=== PATIENT | female | born 1970 | race Caucasian/White ===

== ENCOUNTER 2016-11-11 09:58 | Emergency (ER) | payer OTHER ==
[~2016-11-11] VITALS: Ht 165.1 cm; Wt 68.2 kg
[2016-11-11 10:00] VITALS: BP 138/85; PULSE 76; RESP 16; O2SAT 98
--- NOTE | 2016-11-11 10:25 | ED.REPORT ---
HPI-Abd Pain F 40 and Over Date of Service Nov 11, 2016 ED Provider: Doc,Ed MD The patient is a 46year old female who presents to the emergency department complaining of urinary symptoms that began 2 days ago. She has experienced dysuria, increased urgency/frequency, nausea, vomiting, chills, and generalized weakness. She has history of stage III kidney failure and experiences UTIs often. She is not on dialysis. She denies fever, back pain or abdominal pain. Nursing Notes Stated Complaint: VOMITING Chief Complaint: Female Abdominal Pain Nursing Notes Reviewed: Yes Allergies: Coded Allergies: Penicillins (Verified Allergy, Mild, HIVES, 11/11/16) phenytoin (Verified Allergy, Mild, HIVES RASH, 11/11/16) Scheduled Cephalexin (Keflex) 250 Mg Capsule 250 MG PO BID Ondansetron ODT (Ondansetron ODT) 8 Mg Tab.rapdis 8 MG PO Q8H General Time Seen by MD: 10:24 Chief Complaint Dysuria Hx Obtained From: Patient Arrived By: Walk-in Sudden in Onset?: Yes Onset Occurred: 2 days ago Symptom Duration: Since onset Progression since Onset: Constant Quality: Painful Severity: Current: Mild Severity: Maximum: Mild Associated with: Reports: Chills, Dysuria, Nausea, Urinary frequency, Vomiting , Denies: Diarrhea, Fever Pertinent Negative: Pt denies other symptoms Recent Healthcare: No recent doctor visit, No recent hospitalization Similar Sx Previous: Yes Past Medical History Past Medical History Stage III kidney failure, not on dialysis Hx of UTIs Past Surgical History Cholecystectomy Family History Noncontributory Smoking History Never Smoker Social History Other Social History: Local resident Ambulatory Status Independent Review of Systems Constitutional: Reports: Chills, Weakness - generalized, Denies: Fever GI: Reports: Nausea, Vomiting, Denies: Abdominal pain, Diarrhea Female: Reports: Dysuria, Urinary frequency, Urinary urgency, Urination decreased, Denies: Flank pain Musculoskeletal: Denies: Back pain Complete sys rev & neg: except as marked. Physical Exam Vital Signs Vital Signs (First) Date Time Temp Pulse Resp B/P Pulse Ox O2 Delivery O2 Flow Rate FiO2 11/11/16 10:00 36.4 76 16 138/85 98 Initial VS: Reviewed, Vital signs normal Head / Eyes: Atraumatic, Normocephalic, PERRL ENT: Mucous membranes moist, Conjunctiva normal, No scleral icterus Neck: Supple, Non-tender, Full range of motion Lymphatic: No lymphadenopathy Extremities: Vascular intact, Neuro intact, No swelling, No tenderness Skin: Warm, Dry, No cyanosis Neurologic: Alert, Oriented, Nonfocal Psychiatric: Mood/affect normal, Behavior normal, Normal thought content General/Constitutional: Awake, Alert, Cooperative Respiratory / Chest: Atraumatic, Breath sounds NL, Breath sounds = bilat, No respiratory distress, No rales, No rhonchi, No wheezing, No stridor Cardiovascular: Heart rate NL, Regular rhythm, Heart sounds NL, Peripheral circulation NL Abdomen: Soft, No guarding, No rebound, BS normoactive, No distention, No hernia, No palpable mass, No pulsatile mass Tenderness/Guarding/Rebound: Positive: Tender suprapubic (mild) Back: No midline vertebral tend, No CVA tenderness Interpretation & Diagnostics Lab Results Interpretation Test 11/11/16 10:25 Urine Color Straw (YELLOW) Urine Appearance Slightly cloudy Urine pH 5.5 (5.0-8.0) Urine Specific [place] 1.025 (1.003-1.035) Urine Protein 300mg/dL (NEG,TRACE) Urine Glucose (UA) 100mg/dL (NEGATIVE) Urine Ketones Negativemg/dL (NEGATIVE) Urine Occult Blood Moderate (NEGATIVE) Urine Nitrite Negative (NEGATIVE) Urine Bilirubin Negative (NEGATIVE) Urine Urobilinogen Normalmg/dL (NORMAL) Urine Leukocyte Esterase Moderate (NEGATIVE) Urine RBC 0-2/hpf (0-2) Urine WBC >50/hpf (0-5) Urine Epithelial Cells Occasional/hpf (NONE-MOD) Urine Crystals None seen (NONE SEEN) Urine Bacteria Many/hpf (NONE-FEW) Urine Hyaline Casts None/lpf (NONE) Urine Granular Casts None seen (NONE SEEN) Urine Waxy Casts None seen (NONE SEEN) Urine Red Blood Cell Casts None seen (NONE SEEN) Urine White Blood Cell Casts None seen (NONE SEEN) Urine Mucus None seen (None Seen) Urine Trichomonas None seen (NONE SEEN) Urine Yeast None (NONE SEEN) Urinalysis Comment None Urine Culture Reflexed Indicated Re-Eval/Medical Decision Med Decision/Clinical Course The patient presents with symptoms of a UTI and some symptoms concerning that she is developing infection however she has not had any CVA tenderness. She says she has urinary tract infections but there are no records here. She was started on a course of Keflex given her history of stage IV renal disease. Source of Hx: Old records Re-Evaluation/Progress : Time of Eval: 11:00 Re-Evaluation/Progress Note: Discussed results, diagnosis, and plan for discharge. All questions were addressed. Counseled Regarding: Diagnosis, Lab results, Need for follow-up, When/why to return to ED Discharge & Departure Primary Impression: Urinary tract infection Urinary tract infection type: site unspecified Hematuria presence: without hematuria Qualified Code: N39.0 - Urinary tract infection, site not specified Disposition: Home Discharge Condition All VS Reviewed: Yes Condition: Stable Patient Instructions: Urinary Tract Infection in Women (ED) Additional Instructions: Thank you for entrusting us with your care today. Your labs are consistent with a urinary tract infection. I have written you a prescription for an antibiotic called Keflex. You will take this twice daily for 7 days. I have also given you a prescription for Zofran that you can take for nausea and vomiting. Make sure to drink plenty of fluids. Followup with you regular doctor next week for recheck. Return to the emergency department for any new or concerning symptoms. Referrals: OTHER,PHYSICIAN (PCP) (Family) Scribe Attestation Portions of this note were transcribed by Christine Valera. I, Dr. Elkins personally performed the history, physical exam and medical decision-making; I reviewed and confirmed the accuracy of the information in the transcribed note. Signed by: Ghada Lara, 11/11/2016 at 1120. Janessa Elkins MD Nov 11, 2016 10:24 Christine Valera Nov 11, 2016 10:30
[2016-11-11] MEDS ORDERED: Ondansetron 8 mg ODT Tablet ONE (10:32)
[2016-11-11] MEDS ORDERED: CEPH-511 PO (11:01)
[2016-11-11] MEDS ORDERED: ONDA8TAB10 PO (11:01)
[2016-11-11 11:22] LABS: COLOR,URINE STRAW (YELLOW)
[2016-11-11 11:23] LABS: APPEARANCE,URINE SLIGHTLY CLOUDY (CLEAR,HAZY); OCCULT BLOOD,URINE MODERATE (NEGATIVE); PH,URINE 5.5 (5.0-8.0); UROBILINOGEN,URINE NORMAL (NORMAL)
== END 2016-11-11 11:02 | disposition home or self-care (01) ==
LOC: SED 09:58
DX: N39.0 Urinary tract infection, site not specified (principal); B96.20 Unspecified Escherichia coli [E. coli] as the cause of diseases classified elsewhere; N18.3 Chronic kidney disease, stage 3 (moderate); Z87.440 Personal history of urinary (tract) infections; Z88.0 Allergy status to penicillin; Z88.8 Allergy status to other drugs, medicaments and biological substances

== ENCOUNTER 2016-11-21 18:59 | Inpatient (IN) | payer OTHER ==
[~2016-11-21] VITALS: Ht 165.1 cm; Wt 66.0 kg
[~2016-11-21 18:59] MED LIST: CEPH-511 PO; ONDA8TAB10 PO
[2016-11-21 19:01] VITALS: BP 176/92; PULSE 76; RESP 16; O2SAT 96
[2016-11-21] MEDS ORDERED: 0.9% Sodium Chloride 1,000 ML IV ONE (19:58)
[2016-11-21 20:22] LABS: BASOPHILS % (AUTO) 0.2 % (0-3)
[2016-11-21 20:29] LABS: EOSINOPHILS % (AUTO) 0 % (0-5); MONOCYTES % (AUTO) 0.8 % (4-12); Mean Corpuscular Hemoglobin 27.5 pg (27.0-35.0); Mean Corpuscular Volume 82.9 fL (81-100); NEUTROPHILS % (AUTO) 89.5 % (40-74); Platelet Count 97 bil/L (150-400)
--- NOTE | 2016-11-21 20:39 | ED.REPORT ---
HPI-Dizziness / Weakness Date of Service Nov 21, 2016 ED Provider: Solitario Louise PA-C Suzanna is a 46-year-old female with a history of stroke, diabetes, stage IV kidney disease and MS who presents with a chief complaint of low blood pressure. She reports a two-week history of variability in her blood pressure, she describes it being high and alternating the low when she stands up. She is measuring this at home. She associates the low blood pressure with a sensation of dizziness, presyncope, vertigo, nausea. She has not fallen. She has sensation of pressure in her left eye which he believes is a sinus infection, she has a sense of congestion in her years. recently treated for UTI. 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 She denies history of DVT/PE, recent trauma or surgery, hemoptysis, exogenous estrogen, unilateral leg swelling, malignancy. Nursing Notes Stated Complaint: LOW BLOOD PRESSURE Chief Complaint: Female Abdominal Pain Nursing Notes Reviewed: Yes Allergies: Coded Allergies: Penicillins (Verified Allergy, Mild, HIVES, 11/11/16) phenytoin (Verified Allergy, Mild, HIVES RASH, 11/11/16) Scheduled Cephalexin (Keflex) 250 Mg Capsule 250 MG PO BID Ondansetron ODT (Ondansetron ODT) 8 Mg Tab.rapdis 8 MG PO Q8H General Time Seen by MD: 19:40 Chief Complaint Other (low blood pressure) Risk Factors Risk Notes: Wells criteria for pulmonary embolism low risk group. PERC negative. Past Medical History Past Medical History Stage III kidney failure, not on dialysis Hx of UTIs Past Surgical History Cholecystectomy Family History Noncontributory Smoking History Never Smoker Social History Other Social History: Local resident Ambulatory Status Independent Review of Systems General: Denies fever, chills, malaise. HEENT: Admits congestion, headache. Respiratory: Denies dyspnea, cough, shortness of breath, wheezing. Cardiovascular: Denies chest pain, palpitations. Gastrointestinal: Denies vomiting, diarrhea, abdominal pain. Genitourinary: Denies frequency, urgency, dysuria, hematuria. Otherwise as noted in HPI. Physical Exam General: Well appearing, well developed, well nourished, no acute distress. Disheveled. Head: Atraumatic, normocephalic. No mastoid tenderness. Eyes: No scleral icterus or injection. No discharge. PERRL. Ears: Pinna and tragus nontender with manipulation. External auditory canal patent, atraumatic and without discharge. Tympanic membrane osborne, shiny and translucent without fluid, bulging, retraction or perforation. Hearing grossly intact. Nose: Symmetrical, nares patent without discharge. No frontal or maxillary sinus tenderness. Mouth/pharynx: normal dentition, mucus membranes moist. Tonsils 2+ and symmetrical, uvula midline. Pharynx noninjected, no cobblestoning or discharge. Voice clear. Neck: No tenderness or lymphadenopathy. Trachea midline. Respiratory: Regular rate and rhythm. Breath sounds present, clear to auscultation and equal bilaterally. No respiratory distress. No increased work of breathing, speaks in complete sentences. Cardiovascular: Regular rate and rhythm, without murmur, gallop or rub. No pedal edema. Orthostatic vital signs: Reclining 194/87, 95 bpm. Seated 179/92, 92 bpm. Standing 170/86 89 bpm Gastrointestinal: Abdomen flat and non-tender without guarding or rebound. Bowel sounds normoactive. Skin: Warm and dry. Neurological: Negative pronator drift Cranial nerves: Vision grossly intact, PERRL, EOMI. Facial motion symmetrical, sensation to light touch over forehead, maxilla and mandible present and equal B /L. Voice clear and fluent, no drooling/pooling of saliva, uvula rises midline. Psychological: Alert and oriented. Speech appropriate, linear and logical. Behavior appropriate. Initial Vital Signs Vital Signs (First) Date Time Temp Pulse Resp B/P Pulse Ox O2 Delivery O2 Flow Rate FiO2 11/21/16 19:01 36.3 76 16 176/92 96 Room Air Initial VS: Reviewed, Vital signs abnormal (elevated blood pressure) Interpretation & Diagnostics Lab Results Interpretation Result Diagram: 11/21/16201411/21/16 2015 Test 11/21/16 20:15 White Blood Count 16.5th/mm3 (3.8-10.1) Red Blood Count 4.33mil/mm3 (3.90-5.20) Hemoglobin 11.9g/dL (12.0-15.6) Hematocrit 35.9% (35.0-46.0) Mean Corpuscular Volume 82.9fL (81-100) Mean Corpuscular Hemoglobin 27.5pg (27.0-35.0) Mean Corpuscular Hemoglobin Concent 33.1% (32.0-37.0) Red Cell Distribution Width 13.0% (12.3-15.4) Platelet Count 97bil/L (150-400) Neutrophils (%) (Auto) 89.5% (40-74) Lymphocytes (%) (Auto) 9.0% (14-46) Monocytes (%) (Auto) 0.8% (4-12) Eosinophils (%) (Auto) 0% (0-5) Basophils (%) (Auto) 0.2% (0-3) Activated Partial Thromboplast Time 19.4sec (22.8-33.0) Sodium Level 135mEq/L (134-144) Potassium Level 4.5mEq/L (3.5-5.2) Chloride Level 94mEq/L (97-108) Carbon Dioxide Level 22mmol/L (18-29) Blood Urea Nitrogen 68mg/dL (6-24) Creatinine 3.68mg/dL (0.57-1.00) Estimat Glomerular Filtration Rate 19mL/min (>59) Glucose Level 342mg/dL (60-99) Calcium Level 11.9mg/dL (8.5-10.1) Total Bilirubin 0.3mg/dL (0.0-1.2) Aspartate Amino Transf (AST/SGOT) 19U/L (0-50) Alanine Aminotransferase (ALT/SGPT) 13U/L (0-32) Alkaline Phosphatase 81U/L (25-150) Troponin T 0.198ug/L (0.0-0.011) Total Protein 8.0g/dL (6.4-8.4) Albumin 4.5g/dL (3.4-5.0) Hold Dow Top Tube Received (Received) Re-Eval/Medical Decision Med Decision/Clinical Course Discussed this case with 46-year-old female with history of stroke, diabetes, stage IV kidney disease and less presents with chief complaint of low blood pressure which on further questioning sounds to be orthostatic hypotension which she has been measuring at home. She associates. Low blood pressure with lightheaded dizziness, as well as vertigo, nausea. Physical examination reveals little, I could not reproduce her orthostatic hypotension. She does endorse lightheadedness when she sits and then stands up for the examination. Blood pressure is high at roughly 190/90. CBC reveals leukocytosis with a left shift. CMP reveals a chlorine, elevated BUN and creatinine with a estimated GFR of 19. His 342 and calcium 11.9. Troponin at 0.198. Initially attempted to attribute this to kidney disease however there are no previous records to compare to. Discussed the case with Dr. Marte. He would like to perform an echocardiogram tomorrow. He asked that I put her on metoprolol tartrate 25 mg twice a day and IV heparin according to the cardiac protocol Discussed the case with the hospitalist who accepts admission. Consultation #1: Referral / Consult Name: Ervin Marte MD Consulted With: Cardiology Call Returned at: 21:51 Note: Will see the patient tomorrow and schedule an echo. Asked that we give her aspirin, IV heparin and metoprolol tartrate at 25 mg twice a day Consultation #2: Referral / Consult Name: Dianne Armando DO Consulted With: Hospitalist Call Returned at: 23:14 Still Operator Gin: Accepts admit Patient Discharge & Departure Impression: Primary Impression: NSTEMI (non-ST elevated myocardial infarction) Disposition: ADMITTED TO HOSPITAL Referrals: OTHER,PHYSICIAN (PCP) (Family) EDSupervising Provider for APC: Zhao Montana Seth PA-C Nov 21, 2016 20:39
[2016-11-21 20:58] LABS: TROPONIN T 0.198 ug/L (0.0-0.011)
[2016-11-21 21:23] VITALS: BP 177/74; PULSE 94; RESP 13; O2SAT 97
[2016-11-21] MEDS ORDERED: Heparin 5,000 Unit/mL Inj IVPUSH ONE (22:00)
[2016-11-21] MEDS ORDERED: Heparin 25K Unit/500mL 0.45 NS 25,000 UNIT in IV Premix 1 EACH IV SCH (22:00)
[2016-11-21] MEDS ORDERED: Ondansetron 2 mg/mL 2 mL Inj IVPUSH ONE (22:50)
--- NOTE | 2016-11-21 23:08 | NUR ---
PTT Lab called with PTT at 2305, value of 19.4. Pt not received to floor yet.
[2016-11-21 23:10] VITALS: BP 186/85; PULSE 96; RESP 12; O2SAT 100
[2016-11-21] MEDS ORDERED: Senna-Docusate 8.6-50 mg Tablet PO PRN (23:25)
[2016-11-21] MEDS ORDERED: Polyethylene Glycol (PEG) 17 Gm Powder PO PRN (23:25)
[2016-11-21] MEDS ORDERED: Alum-Mag Hydrox-Simeth 30 mL Suspension PO PRN (23:25)
[2016-11-21 23:43] VITALS: BP 207/115; PULSE 97; RESP 18; O2SAT 97
[2016-11-21 23:57] LABS: APPEARANCE,URINE CLEAR (CLEAR,HAZY); COLOR,URINE YELLOW (YELLOW); OCCULT BLOOD,URINE SMALL (NEGATIVE); UROBILINOGEN,URINE NORMAL (NORMAL)
[2016-11-22] VITALS (15 sets, daily range): BP systolic 136–221; BP diastolic 62–99; PULSE 63–97; RESP 14–22; O2SAT 95–98
[2016-11-22] MEDS: Sodium Chloride LOK Flush 10 mL Syringe IVFLUSH SCH ×4 (00:30→21:12)
--- NOTE | 2016-11-22 00:30 | NUR ---
admission patient admitted to room 3021. tele SR. heparin gtt infusing per cardiac protocol. denies chest pain. bp is elevated as documented. complains of head ache and left eye discomfort. rates 4. left eye is swollen. slight redness. no change to vision. PERRL. up to bsc. steady. denies dizzyness. reviewed fall precautions.bed alarm on.
[2016-11-22] MEDS ORDERED: METO50TA3 PO (00:39)
[2016-11-22] MEDS ORDERED: NIFE60TA62 PO (00:39)
[2016-11-22] MEDS ORDERED: ASPI81TA3 PO (00:39)
[2016-11-22] MEDS ORDERED: FURO40TA4 PO ×2 (00:39)
[2016-11-22] MEDS ORDERED: CARV6.252 PO (00:40)
[2016-11-22] MEDS ORDERED: LOSA100T29 PO (00:40)
[2016-11-22] MEDS ORDERED: INSU100C8 SUBQ (00:41)
[2016-11-22] MEDS ORDERED: INSU100V7 SUBQ (00:41)
[2016-11-22] MEDS ORDERED: LEVO125T6 PO (00:41)
[2016-11-22] MEDS ORDERED: LANS30CA PO (00:42)
[2016-11-22] MEDS ORDERED: METO10TA3 PO (00:43)
[2016-11-22] MEDS ORDERED: PROM25TA14 PO (00:43)
[2016-11-22] MEDS ORDERED: CARV12.52 PO (00:46)
[2016-11-22] MEDS ORDERED: LIP40 PO (00:47)
[2016-11-22] MEDS ORDERED: 0.9% Sodium Chloride 1,000 ML IV SCH (01:20)
--- NOTE | 2016-11-22 01:28 | NUR ---
bp notified Dr Cr of elevated bp. med rec complete. patient requests applesauce. plan to give. c/o headache. plan to give miguel a will monitor.
[2016-11-22] MEDS ORDERED: Glucose 40% Oral Gel 15 Gm Tube PO PRN (03:50)
[2016-11-22] MEDS ORDERED: Labetalol 5 mg/mL 4 mL Inj IVPUSH ONE ×2 (04:00→04:45)
[2016-11-22 04:03] LABS: BASOPHILS % (AUTO) 0.1 % (0-3); EOSINOPHILS % (AUTO) 0 % (0-5); MONOCYTES % (AUTO) 3.6 % (4-12); Mean Corpuscular Hemoglobin 27.5 pg (27.0-35.0); Mean Corpuscular Volume 83.3 fL (81-100); NEUTROPHILS % (AUTO) 83.5 % (40-74); Platelet Count 317 bil/L (150-400)
--- NOTE | 2016-11-22 04:03 | NUR ---
blood pressure blood pressure cont. to be elevated. Dr Armando called, ordered labetolol iv. plan to administer. patient headache has returned. rates 4. no distress. care continues. Addendum: 11/22/16 at 0500 by CINDY WHYTE RN follow up bp to labetolol bp 209/[address] Plan to given an additional Labetolol 10mg slow iv push. and cont to monitor bp.
--- NOTE | 2016-11-22 04:20 | PCM.HPMED ---
Subjective Date of Service Nov 22, 2016 Primary Provider: Admitting Physician: Dianne Armando DO Primary Care Physician: Other,Physician Attending Physician: Dianne Armando DO Admit Status: From the Emergency Department Chief Complaint: Weakness and labile blood pressures History of Present Illness: 46-year-old female patient with complex medical history including multiple sclerosis, chronic kidney disease stage IV, CVA, diabetes type II insulin- dependent and hypertension who presented to the ER due to labile blood pressures and generalized weakness. Patient reports that for the past few days when measuring her blood pressure she has noticed that it has been extremely labile, with close systolic blood pressure down to the 80s and highs in the 215 range. Patient reports that she has been feeling dizzy, extremely fatigued, nauseated. Patient denies any vomiting or diarrhea. Patient reports a left- sided sinus headache. She also reports nasal congestion, sore throat, chills, fever and myalgias. Patient states that she has also been experiencing dysuria , increased urinary frequency and urgency, but denies hematuria. Patient also expresses concern as this morning she noticed she had lost all vision in her left eye. Patient states that at baseline she only has peripheral vision in the left eye, but was concerned when she lost entire vision in that eye. Patient reports that this is slowly resolving and that she is been able to see in that eye currently. Patient reports that she has a history of CVA, and is concerned that the vision change is an indication of another possible CVA. Review of Systems: A comprehensive review of systems was conducted with the patient and found to be negative except as above in the History of Present Illness. Allergies Coded Allergies: Penicillins (Verified Allergy, Mild, HIVES, 11/11/16) phenytoin (Verified Allergy, Mild, HIVES RASH, 11/11/16) Home Medications Aspirin 81 mg Atorvastatin 40 mg Carvedilol 12.5 mg twice a day Furosemide 40 mg daily NovoLog 5 units 3 times a day Lantus 5 units subcutaneous Lansoprazole 30 mg Levothyroxine 125 MCG Losartan 100 mg daily Metoclopramide 10 mg 3 times a day when necessary Metoprolol tartrate 50 mg twice a day Nifedipine 60 mg twice a day Zofran 8 mg every 8 hours Promethazine 25 mg 3 times a day when necessary PMH CVA Multiple sclerosis Insulin-dependent diabetes mellitus type II Left eye peripheral blindness Hypertension Hyperlipidemia GERD Heart murmur Stage IV kidney disease-- no dialysis Surgical History Cholecystectomy 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 Social History Hx Alcohol Use: No Hx Substance Use: No Hx Tobacco Use: No Smoking Status: Never Smoker Living Arrangement: with Family Exam Vital Signs Vital Sign - Last Date Time Temp Pulse Resp B/P Pulse Ox O2 Delivery O2 Flow Rate FiO2 11/22/16 00:58 90 18 206/97 98 Room Air 11/21/16 23:43 36.8 Intake and Output 11/21/16 11/21/16 11/22/16 Cumulative From/Thru 15:00 23:00 07:00 11/21/16 19:01 - 11/22/16 00:48 Intake Total 1000 ml 1000 ml Balance 1000 ml 1000 ml Intake IV Total 1000 ml 1000 ml Exam General: No acute distress, fatigued ,appropriately interactive HEENT: Tenderness to palpation of maxillary and frontal sinuses .Normocephalic, atraumatic. External ears without defect. Pupils equal, round, and reactive to light and accommodation. Moist conjunctivae. Oropharynx with moist mucosa. Neck: Supple with full range of motion.No lymphadenopathy Cardiovascular: Regular rate and rhythm with systolic murmur. No rubs, or gallops appreciated Pulmonary: Nonproductive cough. Clear to auscultation bilaterally with no crackles, wheezes, or rhonchi. Normal respiratory effort with no use of accessory muscles. Abdomen: Bowel tones present. Soft, nontender, nondistended. Extremities: No clubbing, cyanosis, edema, appreciated. Skin: Normal temperature, turgor, and texture; no rash, ulcers, or subcutaneous nodules appreciated. Psychiatric: Flat affect. Alert and oriented to person, place, and time. Neuro: Normal muscle strength, tone, and bulk. Reflexes, coordination, and sensory function within normal limits Lab and Diagnostics Result Diagram: 11/21/16201411/21/162014 Microbiology Urine culture pending Viral PCR pending X-Rays, CTs and MRIs CT of the head pending Assessment & Plan Labile blood pressures in the setting of uncontrolled chronic hypertension, present on admission, ongoing -Patient has been hypertension entire hospitalization -Recommend orthostatic blood pressure in the AM -Patient given 25 mg metoprolol in the ER, an additional 25 mg upon arrival to the room -IV labetalol administered to patient to decrease blood pressure -ER physician spoke with cardiology who recommended dose of metoprolol, aspirin , heparin drip, echocardiogram in the a.m. -Once medication reconciliation was completed continue all home hypertensive medications -Continue to monitor blood pressures Report of temporary left eye blindness, present on admission, resolving -She reports that she has peripheral blindness in her left eye, and that earlier today she experienced complete blindness of her left eye -Reports that this has never occurred to her before and only occurred today. -Pt has a history of CVA, without ocular symptoms -CT of the head ordered -Recommend considering MR stroke protocol -If no acute findings on CT recommend patient follow-up with her neurologist for possible worsening of her MS -Consider neurology consult if patient not continue to improve Acute leukocytosis of unknown etiology, present on admission, ongoing -Patient reports myalgias, nasal congestion, chills, fever -Respiratory viral PCR ordered -Patient also reporting dysuria, increased frequency, increased urgency of urination -UA ordered with urine culture pending -Continue to monitor with a.m. labs -No antibiotics initiated at this time Chronic kidney disease stage IV not on dialysis, present on admission, ongoing -Patient has BUN of 68, creatinine 3.68 -No previous records available for comparison, however patient reports her creatinine is often greater than 3 -Gentle hydration with IV normal saline -Consider nephrology consultation in the a.m. -Continue to monitor with a.m. labs Elevated troponin of unknown etiology, present on admission, ongoing -Patient's elevated troponins likely secondary to her chronic kidney disease -No previous records available for comparison, we will trend the troponins -If patient begins experiencing chest pain, EKG when necessary -Lipid panel pending Acute hypercalcemic, present on admission, ongoing -Calcium level at 11.9, no previous records for comparison -Gentle hydration -Continue to monitor with a.m. labs, if not improving consider treatment with calcitonin History of multiple sclerosis, presumed stable -Reports she is monitored by Dr. Miller of Neurology( [facility]) -Reports her MS is stable and that she is not currently on any medications Diabetes mellitus type II insulin-dependent, present on admission, presumed stable -A1c pending -Low-dose correctional insulin ordered -Continue to monitor with regular blood glucose checks PCP Dr. Kaylie Kaplan CODE STATUS: DNR/DNI Patient is admitted under inpatient status with expected length of stay greater than 2 midnights due to severity of presenting symptoms, risk of adverse event, and complexity of treatment plan. VTE Mechanical Devices: Intermittant Pneumatic CD Resuscitation Status: DNR/DNI:Do Not Resuscitate/Intubate Attending Statement The patient was seen and examined together with (name) on 11/22/2016 and I agree with the history, exam and plan as outlined in the note above. Clair Cr DO Nov 22, 2016 01:49 Dianne Armando DO Nov 22, 2016 05:47
[2016-11-22] MEDS: Ondansetron 2 mg/mL 2 mL Inj IVPUSH PRN ×2 (04:26→08:42)
[2016-11-22] MEDS: Heparin 5,000 Unit/mL Inj IVPUSH PRN ×2 (04:33→17:18)
--- NOTE | 2016-11-22 05:22 | NUR ---
nausea patient reports "i have chronic nausea" medicated with zofran 8mg slow iv push effective.
--- NOTE | 2016-11-22 06:36 | NUR ---
blood pressure medications/ emesis patient's blood pressure cont to be high as documented notified Dr Almeida. ordered morning antihypertensive medications. given. as documented approximately 20 min later patient had large emesis of the food she had eaten at home yesterday. pills seen floating in the emesis. patient confirms that she has gastroparesis and cyclic nausea and vomiting. notified dr almeida of above. plan to given antihypertensive medications later in the morning (they will be rescheduled.)
[2016-11-22] MEDS ORDERED: MeTOProlol 1 mg/mL 5 mL Inj IVPUSH ONE (08:15)
[2016-11-22] MEDS: Insulin LISPRO 300 Unit/3 mL Inj SUBQ SCH ×4 (08:55→21:12)
--- NOTE | 2016-11-22 11:21 | DRSVH ---
[facility] [address] [place] [address] Echocardiogram Report Name: RUTHANN ROMEO Kristopher e: 11/22/2016 Height: 65 in Hospital Exam Location: [facility] Weight: 140 lb Gender: Female BSA: 1.7 m2 : 1970 Age: 46 yrs BP: 214/95 mmHg Reason For Study: MURMUR, HYPERTENSION Ordering Physician: Performed By: Lilia Bowles [facility] Interpretation Summary 1. Normal left ventricular size with mildly increased wall thickness and normal systolic function with an estimated EF of 65 to 70%. Mildly elevated outflow tract velocities 2. Normal right ventricular size and systolic function 3. No evidence for valvular pathology Procedure: A two-dimensional transthoracic echocardiogram with color flow and Doppler was performed. There is no prior echocardiogram noted for this patient. The study quality was technically good. The patient was in normal sinus rhythm during the exam. Left Ventricle: Left ventricular wall thickness is mildly increased. The left ventricle is normal in size. Mildly elevated outflow tract velocities. A false chord is noted (normal variant). The ejection fraction is estimated to be 65-70%. No obvious wall motion abnormalities. The E/A ratio is reversed with an elevated E/E', suggesting impaired early relaxation of the left ventricle with possible increased filling pressures. Right Ventricle: The right ventricle is normal in size and function. Atria: The left atrium is mildly dilated. Right atrial size is normal. No color doppler evidence for an ASD. Mitral Valve: The mitral valve is normal in structure and function. There is mild mitral regurgitation. Aortic Valve: The aortic valve is trileaflet. The aortic valve opens well. No aortic regurgitation is present. Tricuspid Valve: The tricuspid valve leaflets are thin and pliable. There is a trace or physiologic amount of tricuspid regurgitation. Pulmonary artery pressures cannot be estimated because of the lack of a measurable TR jet velocity. Pulmonic Valve: The pulmonic valve is not well seen, but is grossly normal. There is no pulmonic valvular regurgitation. Great Vessels: The aortic root is normal size. The dimensions of the ascending aorta are normal. The IVC is of normal diameter and collapses greater than 50% with a sniff. This suggests a low right atrial pressure of 3 mm Hg. Pericardium/ Pleura There is no pericardial effusion. MMode/2D Measurements & Calculations LVIDd: 4.5 cm LA dimension: 4.1 cm RA long axis LVOT diam LVIDs: 2.7 cm FS: 40.1 % LA A2 area: 18.2 cm RA area AoV Opening EPSS: 0.59 cm LA A4 area: 20.6 cm IVSd: 1.1 cm LA length (vol): 5.1 cm: 14.6 cm Ao root diam LVPWd: 1.4 cm LA vol: 62.1 ml RA vol LA vol index : 35.8 ml Aortic Jxn RA : 21.1 mm2 asc Aorta IVC diam: 1.4 cm Diam: 3.3 cm LV curry. diameter/BSA LV sys. diameter/BSA RVD1 (basal) (cm/m^2): 2.7 (cm/m^2): 1.6 Doppler Measurements & Calculations Ao V2 max MV E max augustin MV E/A: 0.83 PA V2 max : 178.7 cm/sec : 93.3 cm/sec Med Peak E' Augustin : 110.3 cm/sec Ao max PG MV A max augustin PA mean PG : 12.8 mmHg : 112.4 cm/sec E/E' med: 17.4 Ao mean PG MV P1/2t: 42.0 msec Lat Peak E' Augustin PA Accel Time : 0.16 sec LVOT Max Augustin E/E' lat: 12.8 : 135.1 cm/sec E/e' average: 15.1 Pulm A Revs Dur BALTA(I,D): 2.2 cm sev ratio MV A dur: 0.10 sec MV dec time MV P1/2t max augustin Ao V2 mean LV V1 max PG : 0.14 sec : 118.0 cm/sec MVA(P1/2t): 5.2 cm2 Ao V2 VTI: 34.0 cm LV V1 VTI BALTA(V,D): 1.9 cm2 : 28.7 cm PA V2 mean BALTA indexed to BSA Pulm A Revs Dur - MV A : 76.8 cm/sec (cm^2/m^2): 1.3 Dur: -0.01 msec Reading Physician:11:20 AM
[2016-11-22] MEDS ORDERED: NIFEdipine 30 mg ER24 Tablet PO SCH (11:35)
--- NOTE | 2016-11-22 11:42 | DRSVH ---
PROCEDURE: CT BRAIN WITHOUT CONTRAST ([id number]) INDICATIONS: reported sudden loss of vision left eye TECHNIQUE: Noncontrast 4.5 mm thick angled axial sections acquired from the foramen magnum to the vertex, with c oronal reformats. COMPARISON: None. FINDINGS: Image quality: Excellent. CSF spaces: Basal cisterns are patent. No extra-axial fluid collections. Ventricles are normal in size and shape. Brain: No midline shift. No intracranial masses or hemorrhage. De Oliveira-white matter interface is norm al. Skull and face: Calvarium and visualized facial bones are intact, without suspicious lesions. Sinuses: Visualized sinuses and mastoids are clear. IMPRESSION: No acute intracranial abnormality. no explanation for left eye visual loss. Dictated by: Mariella Brunson M.D. on 11/22/2016 at 11:35 Approved by: Mariella Brunson M.D. on 11/22/2016 at 11:35
[2016-11-22] MEDS ORDERED: NS IV SCH ×2 (11:45)
[2016-11-22] MEDS ORDERED: LABETALOL IV SCH ×2 (11:45)
[2016-11-22] MEDS: 0.9% Sodium Chloride 1,000 ML IV SCH ×2 (12:36→21:38)
--- NOTE | 2016-11-22 12:49 | NUR ---
Hypertension Patient continues to be hypertensive even with PRN meds given. MD notified. C/o EWING, Morphine given with good relief. No emesis thus far in shift yet continued to have c/o nausea. Zofran given with good relief. Febrile. Denies chills or SOB. Just continues to state "I feel like crap". Denies chest pain or heart palpitations. Report given to Nik Krueger RN. Will transfer to 2nd floor to start of hypertensive gtt.
--- NOTE | 2016-11-22 13:11 | DRSVH ---
PROCEDURE: X-RAY CHEST ONE VIEW, PORTABLE ([id number]) INDICATIONS: SHORTNESS OF BREATH TECHNIQUE: One view of the chest was acquired. COMPARISON: None. FINDINGS: Surgical changes and devices: None. Lungs and pleura: No pleural effusions or pneumothorax. Lungs are clear. Mediastinum: Mediastinal contours appear normal. Heart size is normal. Bones and chest wall: No suspicious bony lesions. Overlying soft tissues appear unremarkable. IMPRESSION: No acute process. Dictated by: Mariella Brunson M.D. on 11/22/2016 at 13:05 Approved by: Mariella Brunson M.D. on 11/22/2016 at 13:05
--- NOTE | 2016-11-22 17:11 | PCM.PNMED ---
Subjective Date of Service Nov 22, 2016 Subjective This is a 46-year-old female patient with complex medical history including multiple sclerosis, chronic kidney disease stage IV, CVA, diabetes type II insulin-dependent and hypertension who presented to the ER due to labile blood pressures and generalized weakness. Patient has been admitted for labile blood pressure and acute leukocytosis of unknown etiology. Hospital day #2. Patient c/o headache, morphine given with good relief. One episode of emesis after morning pills were given. Patient denies chills or shortness of breath. Just continues to state "I feel like crap". Denies chest pain or heart palpitations. Patient continued to be hypertensive, highest recorded BP 207/ 115 despite multiple PRN meds. Patient was transferred to 2nd floor to start of hypertensive gtt. Exam Vital Signs Vital Sign - Last Date Time Temp Pulse Resp B/P Pulse Ox O2 Delivery O2 Flow Rate FiO2 11/22/16 15:55 37.1 76 16 156/62 96 Room Air Intake and Output 11/21/16 11/21/16 11/22/16 Cumulative From/Thru 15:00 23:00 07:00 11/21/16 19:01 - 11/22/16 05:52 Intake Total 1000 ml 830 ml 1830 ml Output Total 500 ml 500 ml Balance 1000 ml 330 ml 1330 ml Intake Oral 400 ml 400 ml IV Total 1000 ml 430 ml 1430 ml Output Urine Total 500 ml 500 ml # Bowel Movements 0 0 Exam General: Somnolent, ill appearing, fatigued female HEENT: Tenderness to palpation of maxillary and frontal sinuses .Normocephalic, atraumatic. Neck: Supple, no lymphadenopathy Cardiovascular: Regular rate and rhythm with systolic murmur. No rubs, or gallops appreciated Pulmonary: Nonproductive cough. Clear to auscultation bilaterally with no crackles, wheezes, or rhonchi. Reduced respiratory effort with no use of accessory muscles. Abdomen: Bowel tones present. Soft, nontender, nondistended. Extremities: No clubbing, cyanosis, edema, appreciated. Skin: Normal temperature, turgor, and texture; no rash, ulcers, or subcutaneous nodules appreciated. Lab and Diagnostics Result Diagram: 11/22/16 0955 11/22/16 0355 Microbiology Urine culture negative Viral PCR negative Blood culture pending X-Rays, CTs and MRIs PROCEDURE: X-RAY CHEST ONE VIEW, PORTABLE ([id number]) FINDINGS: Surgical changes and devices: None. Lungs and pleura: No pleural effusions or pneumothorax. Lungs are clear. Mediastinum: Mediastinal contours appear normal. Heart size is normal. Bones and chest wall: No suspicious bony lesions. Overlying soft tissues appear unremarkable. IMPRESSION: No acute process. Dictated by: Mariella Brunson M.D. on 11/22/2016 at 13:05 Approved by: Mariella Brunson M.D. on 11/22/2016 at 13:05 PROCEDURE: CT BRAIN WITHOUT CONTRAST ([id number]) IMPRESSION: No acute intracranial abnormality. no explanation for left eye visual loss. Dictated by: Mariella Brunson M.D. on 11/22/2016 at 11:35 Approved by: Mariella Brunson M.D. on 11/22/2016 at 11:35 Assessment & Plan Labile blood pressures in the setting of uncontrolled chronic hypertension, present on admission, ongoing -Patient has been hypertension entire hospitalization -Recommend orthostatic blood pressure in the AM -Patient given 25 mg metoprolol in the ER, an additional 25 mg upon arrival to the room -IV labetalol administered to patient to decrease blood pressure -ER physician spoke with cardiology who recommended dose of metoprolol, aspirin , heparin drip, echocardiogram in the a.m. -Once medication reconciliation was completed continue all home hypertensive medications -Continue to monitor blood pressures: patient remained hypertensive despite multiple attempts to reduce it with IV meds, Patient has been transferred to ICU to start hypertensive gtt. 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 -Pt has a history of CVA, without ocular symptoms -CT of the head revealed no acute intracranial abnormality and no explanation for left eye visual loss. -Recommend considering MR stroke protocol -Follow-up with her neurologist for possible worsening of her MS -Consider neurology consult if patient not continue to improve Acute leukocytosis of unknown etiology, present on admission, ongoing -Patient reports myalgias, nasal congestion, chills, fever -Respiratory viral PCR negative -Patient also reporting dysuria, increased frequency, increased urgency of urination -UA ordered with urine culture pending -Continue to monitor with a.m. labs -No antibiotics initiated at this time Chronic kidney disease stage IV not on dialysis, present on admission, ongoing -Patient has BUN of 68, creatinine 3.68 -No previous records available for comparison, however patient reports her creatinine is often greater than 3 -Gentle hydration with IV normal saline -Consider nephrology consultation in the a.m. -Continue to monitor with a.m. labs Elevated troponin of unknown etiology, present on admission, ongoing -Patient's elevated troponins likely secondary to her chronic kidney disease -No previous records available for comparison, we will trend the troponins -If patient begins experiencing chest pain, EKG when necessary -Lipid panel pending Acute hypercalcemic, present on admission, ongoing -Calcium level at 11.9, no previous records for comparison -Gentle hydration -Continue to monitor with a.m. labs, if not improving consider treatment with calcitonin History of multiple sclerosis, presumed stable -Reports she is monitored by Dr. Miller of Neurology( [facility]) -Reports her MS is stable and that she is not currently on any medications Diabetes mellitus type II insulin-dependent, present on admission, presumed stable -A1c pending -Low-dose correctional insulin ordered -Continue to monitor with regular blood glucose checks PCP Dr. Kaylie Kaplan CODE STATUS: DNR/DNI Patient is admitted under inpatient status with expected length of stay greater than 2 midnights due to severity of presenting symptoms, risk of adverse event, and complexity of treatment plan. VTE Mechanical Devices: Intermittant Pneumatic CD Resuscitation Status: DNR/DNI:Do Not Resuscitate/Intubate Time spent 35minutes Attending Statement The patient was seen and examined together with Dr. Cooney on 11/22/16 and I have added additional information to the note above. Keyana Cooney DO Nov 22, 2016 17:11 Marycruz Willams DO Dec 04, 2016 17:39
--- NOTE | 2016-11-22 18:45 | NUR ---
HTN Cardiac: Pt denies chest pain. Tele: SR 60s-70s. At arrival to [facility] from [facility] at 13:15, pt's BP was 154/65, BP continued to trend down to 139/68 at 14:15 and then back up to a range of 155-165/65-71. If SBP > 200 or DBP > 100, give labetelol IV twice, if no effect, start Esmolol gtt per Dr Willams. Resp: Pt denies SOB, SPO2 mid 95% on RA. GI/: Pt denies n/v this afternoon, reports she is hungry, discussed with Dr Willams and will stop NPO order. Neuro: alert and oriented x3, NUNES, flat affect and very tired.
[2016-11-22] MEDS: NIFEdipine 30 mg ER24 Tablet PO SCH (21:11)
[2016-11-23] VITALS (8 sets, daily range): BP systolic 144–161; BP diastolic 69–77; PULSE 64–70; RESP 14–18; O2SAT 96–98
--- NOTE | 2016-11-23 05:37 | NUR ---
Blood Pressure Pt's BP throughout shift approx. 140s-160s SBP; HS antihypertensives given, no additional BP control needed this shift. Pt reports dizziness on exertion. MP30 in place. Pt resting throughout shift. Denies dyspnea or pain.
[2016-11-23] MEDS: 0.9% Sodium Chloride 1,000 ML IV SCH ×2 (06:29→18:09)
[2016-11-23] MEDS: Insulin LISPRO 300 Unit/3 mL Inj SUBQ SCH ×4 (08:00→20:06)
[2016-11-23] MEDS: Sodium Chloride LOK Flush 10 mL Syringe IVFLUSH SCH ×2 (08:30→16:30)
[2016-11-23] MEDS: NIFEdipine 30 mg ER24 Tablet PO SCH ×2 (09:52→20:54)
--- NOTE | 2016-11-23 11:24 | PCM.PNMED ---
Subjective Date of Service Nov 23, 2016 Subjective Patient feels better today. Less weak. Her blood pressures are a little less labile. She denies any chest pain. No dyspnea. She denies any nausea or vomiting. No diarrhea. Vision is back to baseline. She has central vision and no peripheral vision chronically in both eyes. She has had multiple episodes of laser surgery to both eyes. Exam Vital Signs Vital Sign - Last Date Time Temp Pulse Resp B/P Pulse Ox O2 Delivery O2 Flow Rate FiO2 11/23/16 09:53 69 11/23/16 08:25 36.9 16 148/69 98 Room Air Intake and Output 11/22/16 11/22/16 11/23/16 Cumulative From/Thru 15:00 23:00 07:00 11/21/16 19:01 - 11/23/16 06:01 Intake Total 1290 ml 1568 ml 4688 ml Output Total 300 ml 0 ml 700 ml 1500 ml Balance -300 ml 1290 ml 868 ml 3188 ml Intake Oral 0 ml 200 ml 600 ml IV Total 1290 ml 1368 ml 4088 ml Output Urine Total 300 ml 0 ml 700 ml 1500 ml # Bowel Movements 0 0 Exam Alert oriented 3. No distress. Fluent speech. Anicteric sclerae Normal visual testing with digits in the left eye. No facial droop. Lungs are clear with normal effort. Heart is regular with 2/6 systolic murmur Abdomen is soft nontender. Extremities are free of edema good pedal pulses. IVs and Medications Medications Reviewed: Medications were reviewed in detail Lab and Diagnostics Result Diagram: 11/23/16 0350 11/22/16 0355 Microbiology Urine culture negative Viral PCR negative Blood culture pending X-Rays, CTs and MRIs PROCEDURE: X-RAY CHEST ONE VIEW, PORTABLE ([id number]) FINDINGS: Surgical changes and devices: None. Lungs and pleura: No pleural effusions or pneumothorax. Lungs are clear. Mediastinum: Mediastinal contours appear normal. Heart size is normal. Bones and chest wall: No suspicious bony lesions. Overlying soft tissues appear unremarkable. IMPRESSION: No acute process. Dictated by: Mariella Brunson M.D. on 11/22/2016 at 13:05 Approved by: Mariella Brunson M.D. on 11/22/2016 at 13:05 PROCEDURE: CT BRAIN WITHOUT CONTRAST ([id number]) IMPRESSION: No acute intracranial abnormality. no explanation for left eye visual loss. Dictated by: Mariella Brunson M.D. on 11/22/2016 at 11:35 Approved by: Mariella Brunson M.D. on 11/22/2016 at 11:35 Assessment & Plan 1. Hypertensive urgency. POA. This is improving. We will stick with the current medical regimen without change today is her pressures appear to be improving. 2. Elevated troponin and patient with chronic kidney disease stage IV. POA. Continue heparin and other cardioprotective medications. We will discuss with cardiology. We will trend troponins. 3. Chronic kidney disease stage IV. POA. Stable. 4. Hypercalcemia, POA. He improving with gentle hydration. 5. Diabetes mellitus 2, uncontrolled. POA. Her control is now improving with hydration and correction lispro. 6. MS. POA. Stable 7. Recent report of decreased visual acuity in the left eye prior to admit. Not POA. She does have a history of glaucoma as well as diabetic retinopathy. Gen. field testing is normal at this time. We will follow clinically. Pain Evaluation: Adequate Pain Control VTE Mechanical Devices: Intermittant Pneumatic CD Resuscitation Status: DNR/DNI:Do Not Resuscitate/Intubate Time spent 30 minute Froylan Underwood MD Nov 23, 2016 11:23
--- NOTE | 2016-11-23 14:02 | CONS ---
[address] [address] CONSULTATION REPORT PATIENT: RUTHANN ROMEO : 1970 MR#: [id number] ADMIT: 11/21/2016 JOB ID: [id number] DATE OF SERVICE: 11/23/2016 CHIEF COMPLAINT: I was asked by the hospitalist team to consult on this patient given labile blood pressures and elevated troponin The patient is 46-year-old woman with past medical history significant for multiple sclerosis, history of stroke last year with decreased vision in her left eye. She also has a history of multiple sclerosis, chronic kidney disease, insulin-dependent diabetes and hypertension. She came to the ER because of generalized weakness. She tells me that she is taking her blood pressure medications regularly but has wide swings in blood pressure, with her systolic sometimes dropping as low as 70. Upon arrival to the ED, she was actually hypertensive and has been hypertensive for hospital stay until today where her blood pressures have normalized. She has multiple doctors who follow her. She has a primary care doctor in [facility] in [place]. She has a call center manager in [place] who has done stress test on her apparently and there has been no concern about her coronaries. She has a history of renal disease and is followed by a doctor at the [facility] as well. She again reports problems with her blood pressures which has been an ongoing issue. She tells me that she has been advised against having any further coronary assessment of course because of her renal function. The patient says she never had chest pressure, chest tightness, increased shortness of breath, orthopnea, PND, lower extremity edema, palpitations, or syncope. She said she has been feeling somewhat dizzy, fatigued, and somewhat nauseous. Today, she says she is feeling much better. She again denies any chest pain, chest pressure, increased shortness of breath. She is lying flat in bed. Her blood pressures have improved. PAST MEDICAL HISTORY/PROBLEM LIST: 1. History of multiple sclerosis. 2. History of stroke last year with vision issues associated with this affecting her left eye. 3. Chronic kidney disease. 4. Hypertension with issues with labile hypertension. 5. History of heart murmur. 6. History of GERD and hyperlipidemia. MEDICATIONS: At home included: 1. Aspirin 81 mg a day. 2. Atorvastatin 40 daily. 3. Carvedilol 12.5 b.i.d. 4. Furosemide 40 daily. (This was prescribed for lower extremity edema by her kidney doctor.) 5. NovoLog insulin. 6. Lantus insulin. 7. Lansoprazole 30 mg a day. 8. Levothyroxine 125 mcg daily. 9. Losartan 100 mg daily. 10. Metoprolol titrate 50 mg twice a day. 11. Nifedipine 60 mg twice a day. 12. Zofran. 13. Promethazine. ALLERGIES: 1. PENICILLINS. 2. PHENYTOIN. SOCIAL HISTORY: Never smoked. No alcohol use. FAMILY HISTORY: No early coronary disease. REVIEW OF SYSTEMS: No fevers or chills. Neuro: History of stroke with vision issues affecting her left side, somewhat worse at the time of admission. Heme: No easy bruising or bleeding. Renal: Has chronic kidney disease. Is followed by a kidney specialist. GI: No problems with ulcers or blood in his stool. Had some nausea. This has resolved. Endocrine: Treated for diabetes mellitus. Cardiac: As per HPI. No chest pain. No chest pressure. Has a call center manager. ENT: No difficulty swallowing. No sore throat. Ophtho: Acute vision changes with some worsening of left visual issues. Psych: No acute issues. Derm: No acute rashes, skin breakdown. Psych: No acute issues. All other review of systems on a 12 point review of systems are negative. PHYSICAL EXAMINATION: Blood pressure today is 148/69, heart rate 64, and sats are 98% on room air. Yesterday her blood pressures were in the 200 systolic. General: In no acute distress. Speaking in full sentences without apparent shortness of breath. Head and neck exam: Normocephalic, atraumatic. She is closing her left eye. Eyes: She has some possible edema affecting her eyelids. Neck: I do not appreciate obvious JV distention. Vascular: I do not appreciate bruits. Heart exam: Regular rate and rhythm with systolic murmur with does not increase significantly post Valsalva. Lungs sound clear to auscultation. Back: No CVA tenderness to palpation. Abdomen soft, nontender. Extremities: Warm. I do not appreciate a significant edema. 1 to 2+ DP pulses appreciated. Derm: without breakdown appreciated. Neuro: Is alert and oriented x3. Gait is not tested. Psych: Appropriate mood and affect. ENT: Oropharynx without erythema. Mucous membranes moist. Ophtho: She reports decreased vision in the left eye. CURRENT MEDICATIONS: Include: 1. Promethazine. 2. Nifedipine 60 b.i.d. 3. Carvedilol 12.5 b.i.d. 4. Atorvastatin 40 q.h.s. 5. Losartan 100 mg daily. 6. Heparin drip. 7. She was written for esmolol but this has been discontinued and metoprolol tartrate was also written in addition to Coreg but this has also been discontinued. LABORATORIES: Today show sodium 135, potassium 4.3, chloride and bicarb 96 and 26, respectively. BUN and creatinine 62 and 3.45. LDL cholesterol 87, HDL 44. Her troponins have been in the range of 0.2 showing some increase yesterday to 0.245 to 0.283. Calcium is elevated. Glucoses are also quite elevated. Hematology shows yesterday a white count 6.6, H and H 11 and 33, platelets 317,000. H and H has decreased somewhat to 8.8 and 27.2. IMAGING: Brain CT without contrast, no acute abnormalities. Chest x-ray: No acute processes. EKG shows sinus rhythm with nonspecific ST changes. IMPRESSION: The patient has a very complicated history. She presented with problems with labile blood pressures and then presenting with significant hypertension. She felt dizzy and fatigued. She came in and had an elevated blood pressure as well as an elevated troponin without associated significant EKG changes. He has no chest pain. No chest pressure. She has renal insufficiency. She tells me that she has had stress testing before. There has been no concern about her heart by her call center manager. There has been concern about her kidneys of course and she is not a dialysis patient at this time. PLANS AND RECOMMENDATION: I did discuss the ways to assess her further which would be including a stress test and/or cardiac catheterization. However, she has no chest pain, no chest pressure. She has normal LV systolic function without obvious wall motion abnormalities and would not wish to have cardiac catheterization because it would worsen her kidney function. She is also expressing desire to not have stress testing as well. I think we need to have further discussion with this patient in terms of what she would like us to do, but it seems she is leaning towards conservative management. In light of the fact that she does not seem to have any wall motion abnormalities or any acute symptoms that would warrant cardiac catheterization, I think for now we will treat her conservatively. Will keep her on the heparin. We can add Plavix if that is reasonable. We might be able to get her old records from her call center manager as well. Addendum: I have reviewed all the data on this patient and she denies any chest pain, chest pressure. She has elevated troponins which have been fairly stable. The elevated troponins could be due to the fact that she has some LVH, periods of relative hypotension or hypertension. However, she has never had chest pain or chest pressure. She says she has a call center manager who takes good care of her. I discussed our options which include medical management only, adding Plavix to her medications along with statin and beta benita. Option two was to do stress testing for risk stratification to see if it would be worth the risk to perform cardiac catheterization. She does not want to have stress testing and she does not want to have cardiac catheterization given her kidney function. Therefore, she agrees to medical management. So, we will treat her with statin, aspirin, Plavix and Coreg that she is already on. We can get her up walking around and make sure she does not have any chest discomfort or dyspnea or arrhythmias on telemetry. Addenda added by BRANDON 11/24/16 at 8:14am I spent 50 minutes speaking with the patient, reviewing her information, examining the patient and discussing her case with the hospitalist DAMARIS
--- NOTE | 2016-11-23 14:24 | NUR ---
Social Work Note: Screen Note Data & Assessment: EMR reviewed. Suzanna Powell is a 46 year old female admitted on 11/21/16 for N-Stemi. Pt has [employer] for insurance coverage. Pt lives with her father and is independent at baseline with a cane. Patient reports that she does not have a DPOA and accepted that information given by the SW. No discharge needs identified at this time. SW to continue to follow if any needs arise. Plan: Anticipated discharge home via POV when medically ready. No discharge needs identified at this time. SW to continue to follow if any needs arise. Sunitha [place]ellin, MARK, ACM
[2016-11-23 19:04] LABS: Mean Corpuscular Hemoglobin 26.8 pg (27.0-35.0); Mean Corpuscular Volume 85.1 fL (81-100)
--- NOTE | 2016-11-23 19:29 | NUR ---
Activity/Insulin mgmt. Pt was up in room and ambulating more than yesterday. Reports some lightheadedness, but is steady on feet. blood sugars are lower today requiring only minimal insulin doses. Cardiac:Pt denies CP, tele SR 60s Resp: Pt denies SOB, SPO2 96% on RA GI/: Pt denies n/v/d, discussed bowel meds with pt, pt declines at this time as she was NPO yesterday. She uses dulcolax at home. Neuro: Pt AOx3, able to NUNES, Pt reports "I'm always a little dizzy", it is not worse than her normal, she also reports neuropathy in legs at baseline.
[2016-11-24 00:02] VITALS: BP 149/74; PULSE 69; RESP 16; O2SAT 97
[2016-11-24] MEDS: Sodium Chloride LOK Flush 10 mL Syringe IVFLUSH SCH ×2 (00:30→08:48)
--- NOTE | 2016-11-24 02:29 | NUR ---
BP Pt's BP readings below 150/80. Pt has no complaints. No s/sx or complaints.
[2016-11-24 03:28] VITALS: BP 141/85; PULSE 74; RESP 20; O2SAT 97
[2016-11-24] MEDS: Insulin LISPRO 300 Unit/3 mL Inj SUBQ SCH ×2 (08:00→12:00)
[2016-11-24 08:38] LABS: BASOPHILS % (AUTO) 0.4 % (0-3); EOSINOPHILS % (AUTO) 3.2 % (0-5); MONOCYTES % (AUTO) 8.8 % (4-12); Mean Corpuscular Volume 86.5 fL (81-100); NEUTROPHILS % (AUTO) 43.3 % (40-74); Platelet Count 226 bil/L (150-400)
[2016-11-24 08:40] VITALS: BP 166/75; PULSE 73; RESP 16; O2SAT 97
[2016-11-24] MEDS: NIFEdipine 30 mg ER24 Tablet PO SCH (08:48)
[2016-11-24 09:24] VITALS: PULSE 70
--- NOTE | 2016-11-24 11:15 | PCM.DIMED ---
Discharge Instructions Date of Service Nov 24, 2016 Dates of Hospitalization Nov 21, 2016 at 22:00 Discharge Diagnosis Discharge Diagnosis 1. Hypertensive urgency. 2. Elevated troponin and patient with chronic kidney disease stage IV. Possible demand ischemia. 3. Chronic kidney disease stage IV. POA. Stable. 4. Hypercalcemia, resolved. 5. Diabetes mellitus 2, uncontrolled. Improved. 6. Multiple sclerosis. Diet Heart Healthy, Diabetic, Renal Diet Activity Limited until seen by PCP Call your provider Fever or Chills, Shortness of breath, Chest pain Patient Instructions Your PCP as scheduled next week. I would urge you to see your kidney doctor and talked about dialysis planning as well as the management of year ongoing erratic high blood pressure. Follow-up with PCP in: 1 week Froylan Underwood MD Nov 24, 2016 11:15
--- NOTE | 2016-11-24 11:33 | NUR ---
Social Work Note: Discharge Data& Assessment: Per pt is medically ready for discharge home via POV. Suzanna Powell is a 46 year old female admitted on 11/21/2016 for N-Stemi. Per pt is medically improved and ready for discharge. Pt is independent in her room and independent at baseline. SW met with pt and pt father at bedside to confirm discharge plan and assess for any unmet needs. Pt inquired about assistance with medical bills. SW provided pt with a financial assistance application and also information on obtaining a secondary insurance plan to aid in extra health care costs not covered by her primary insurer. Pt and pt father deny any other needs. No other discharge needs identified. All updated and agreeable to plan. Plan: Per pt is medically ready for discharge home via POV. Pt and pt father deny any other needs. No other discharge needs identified. All updated and agreeable to plan. RAYSA Flores
--- NOTE | 2016-11-24 13:35 | NUR ---
Discharge pt ordered for discharge home. pt agreeable. discharge instructions and medications reviewed with patient and family. pt escorted to front lobby via wheelchair with all belongings at about 1220
--- NOTE | 2016-12-16 14:57 | PCM.DC.MED ---
Discharge Summary Date of Service Nov 24, 2016 Dates of Hospitalization Date of Hospital Admission Nov 21, 2016 at 22:00 Date of Discharge: Nov 24, 2016 Providers: Admitting Physician: Dianne Armando DO Primary Care Physician: Other,Physician Attending Physician: Dianne Armando DO Diagnosis at Time of Discharge Diagnosis at Time of Discharge 1. Hypertensive urgency. 2. Elevated troponin and patient with chronic kidney disease stage IV. Possible demand ischemia. 3. Chronic kidney disease stage IV. POA. Stable. 4. Hypercalcemia, resolved. 5. Diabetes mellitus 2, uncontrolled. Improved. 6. Multiple sclerosis. Consultations Cardiology Procedures XRay, CTs & MRIs PROCEDURE: X-RAY CHEST ONE VIEW, PORTABLE ([id number]) FINDINGS: Surgical changes and devices: None. Lungs and pleura: No pleural effusions or pneumothorax. Lungs are clear. Mediastinum: Mediastinal contours appear normal. Heart size is normal. Bones and chest wall: No suspicious bony lesions. Overlying soft tissues appear unremarkable. IMPRESSION: No acute process. Dictated by: Mariella Brunson M.D. on 11/22/2016 at 13:05 Approved by: Mariella Brunson M.D. on 11/22/2016 at 13:05 PROCEDURE: CT BRAIN WITHOUT CONTRAST ([id number]) IMPRESSION: No acute intracranial abnormality. no explanation for left eye visual loss. Dictated by: Mariella Brunson M.D. on 11/22/2016 at 11:35 Approved by: Mariella Brunson M.D. on 11/22/2016 at 11:35 ECG 12 Lead NSR with LVH and NSST changes as well as a long QT (516) Cardiac Echo Impression 1. Normal left ventricular size with mildly increased wall thickness and normal systolic function with an estimated EF of 65 to 70%. Mildly elevated outflow tract velocities 2. Normal right ventricular size and systolic function 3. No evidence for valvular pathology Invasive Procedures None Brief History 46-year-old female patient with complex medical history including multiple sclerosis, chronic kidney disease stage IV, CVA, diabetes type II insulin- dependent and hypertension who presented to the ER due to labile blood pressures and generalized weakness. Patient reports that for the past few days when measuring her blood pressure she has noticed that it has been extremely labile, with close systolic blood pressure down to the 80s and highs in the 215 range. Patient reports that she has been feeling dizzy, extremely fatigued, nauseated. Patient denies any vomiting or diarrhea. Patient reports a left- sided sinus headache. She also reports nasal congestion, sore throat, chills, fever and myalgias. Patient states that she has also been experiencing dysuria , increased urinary frequency and urgency, but denies hematuria. Patient also expresses concern as this morning she noticed she had lost all vision in her left eye. Patient states that at baseline she only has peripheral vision in the left eye, but was concerned when she lost entire vision in that eye. Patient reports that this is slowly resolving and that she is been able to see in that eye currently. Patient reports that she has a history of CVA, and is concerned that the vision change is an indication of another possible CVA. Hospital Course 1. Hypertensive urgency. POA. This is improving. We will stick with the current medical regimen without change today is her pressures appear to be improving. 2. Elevated troponin and patient with chronic kidney disease stage IV. POA. Continue heparin and other cardioprotective medications. We will discuss with cardiology. We will trend troponins. 3. Chronic kidney disease stage IV. POA. Stable. 4. Hypercalcemia, POA. He improving with gentle hydration. 5. Diabetes mellitus 2, uncontrolled. POA. Her control is now improving with hydration and correction lispro. 6. MS. POA. Stable 7. Recent report of decreased visual acuity in the left eye prior to admit. Not POA. She does have a history of glaucoma as well as diabetic retinopathy. Gen. field testing is normal at this time. We will follow clinically. Hospital course: patient was followed clinically. She declined and risk stratification of a stress test and or a cardiac angiogram. Her blood pressure normalized and her hypercalcemia improved with gentle hydration. Her hyperglycemia also improved with hydration. Exam As noted, all were stable. Exam Patient seen and examined on the day of discharge. Test 11/21/16 20:15 11/21/16 23:20 11/22/16 03:55 11/22/16 12:21 Hold Dow Top Tube Received (Received) Urine Color Yellow (YELLOW) Urine Appearance Clear (CLEAR,HAZY) Urine pH 7.0 (5.0-8.0) Urine Specific [place] 1.020 (1.003-1.035) Urine Protein 100mg/dL (NEG,TRACE) Urine Glucose (UA) 500mg/dL (NEGATIVE) Urine Ketones Negativemg/dL (NEGATIVE) Urine Occult Blood Small (NEGATIVE) Urine Nitrite Negative (NEGATIVE) Urine Bilirubin Negative (NEGATIVE) Urine Urobilinogen Normalmg/dL (NORMAL) Urine Leukocyte Esterase Negative (NEGATIVE) Urine RBC 0-2/hpf (0-2) Urine WBC 6-10/hpf (0-5) Urine Epithelial Cells Moderate/hpf (NONE-MOD) Urine Crystals None seen (NONE SEEN) Urine Bacteria Few/hpf (NONE-FEW) Urine Hyaline Casts None/lpf (NONE) Urine Granular Casts None seen (NONE SEEN) Urine Waxy Casts None seen (NONE SEEN) Urine Red Blood Cell Casts None seen (NONE SEEN) Urine White Blood Cell Casts None seen (NONE SEEN) Urine Mucus None seen (None Seen) Urine Trichomonas None seen (NONE SEEN) Urine Yeast None (NONE SEEN) Urine Culture Reflexed Indicated Hemoglobin A1c 6.7% (4.8-5.6) Triglycerides Level 148mg/dL (0-149) Cholesterol Level 161mg/dL (100-199) LDL Cholesterol, Calculated 87.400mg/dL (0-99) VLDL Cholesterol 29.600mg/dL HDL Cholesterol 44mg/dL (>39) Cholesterol/HDL Ratio 3.66 (0.0-4.4) Lactic Acid Level 1.0mmol/L (0.4-2.0) Procalcitonin 0.07ng/mL (0.00-0.08) Test 11/22/16 16:05 11/24/16 02:55 11/24/16 10:25 Troponin T 0.283ug/L (0.0-0.011) White Blood Count 12.3th/mm3 (3.8-10.1) Red Blood Count 3.33mil/mm3 (3.90-5.20) Hemoglobin 9.0g/dL (12.0-15.6) Hematocrit 28.8% (35.0-46.0) Mean Corpuscular Volume 86.5fL (81-100) Mean Corpuscular Hemoglobin 27.0pg (27.0-35.0) Mean Corpuscular Hemoglobin Concent 31.3% (32.0-37.0) Red Cell Distribution Width 13.3% (12.3-15.4) Platelet Count 226bil/L (150-400) Neutrophils (%) (Auto) 43.3% (40-74) Lymphocytes (%) (Auto) 44.2% (14-46) Monocytes (%) (Auto) 8.8% (4-12) Eosinophils (%) (Auto) 3.2% (0-5) Basophils (%) (Auto) 0.4% (0-3) Sodium Level 140mEq/L (134-144) Potassium Level 3.9mEq/L (3.5-5.2) Chloride Level 108mEq/L (97-108) Carbon Dioxide Level 20mmol/L (18-29) Blood Urea Nitrogen 41mg/dL (6-24) Creatinine 2.79mg/dL (0.57-1.00) Estimat Glomerular Filtration Rate 26mL/min (>59) Glucose Level 162mg/dL (60-99) Calcium Level 8.4mg/dL (8.5-10.1) Total Bilirubin 0.2mg/dL (0.0-1.2) Aspartate Amino Transf (AST/SGOT) 18U/L (0-50) Alanine Aminotransferase (ALT/SGPT) 8U/L (0-32) Alkaline Phosphatase 50U/L (25-150) Total Protein 5.3g/dL (6.4-8.4) Albumin 3.0g/dL (3.4-5.0) Activated Partial Thromboplast Time 61.1sec (22.8-33.0) Microbiology Results Urine culture negative Viral PCR negative Blood culture pending Discharge Medications Discharge Medications Aspirin Chew (Aspirin Chew) 81 Mg Chew 81 MG PO DAILY (Reported) Atorvastatin (Lipitor) 40 Mg Tablet 40 MG PO HS (Reported) Furosemide (Furosemide) 40 Mg Tablet 40 MG PO DAILY (Reported) Insulin Aspart (NovoLOG U100 Insulin Vial) 100 U/Ml U 5 UNIT SUBQ TIDWM ( Reported) Insulin Glargine (Lantus U100 Insulin Vial) 100 Unit/Ml Vial 5 UNIT SUBQ QPM ( Reported) Lansoprazole (Lansoprazole) 30 Mg Capsule.dr 30 MG PO BID (Reported) Levothyroxine (Levothyroxine) 125 Mcg Tablet 125 MCG PO QAM (Reported) Losartan Potassium (Losartan Potassium) 100 Mg Tablet 100 MG PO DAILY (Reported ) Metoprolol Tartrate (Metoprolol Tartrate) 50 Mg Tablet 50 MG PO BID (Reported) Nifedipine ER (Nifedipine ER) 60 Mg Tab.er.24 60 MG PO BID (Reported) Ondansetron ODT (Ondansetron ODT) 8 Mg Tab.rapdis 8 MG PO Q8H Prescribed by: MANUEL ARCHIBALD MD Sulfamethoxazole/Trimeth 800-160 mg (Bactrim DS) 1 Each Tablet 1 TABLET PO BID Prescribed by: VIVEK DENIS MD As needed Metoclopramide (Metoclopramide) 10 Mg Tablet 10 MG PO Q6H PRN PRN For Nausea ( Reported) Promethazine (Promethazine) 25 Mg Tablet 25 MG PO TID PRN PRN For Nausea ( Reported) Followup Plan Disposition: Home, with family Discharge Diet: Heart Healthy, Diabetic, Renal Diet Discharge Activity: Limited until seen by PCP Patient Instructions Your PCP as scheduled next week. I would urge you to see your kidney doctor and talked about dialysis planning as well as the management of year ongoing erratic high blood pressure. Follow-up with PCP in: 1 week Time spent 40 minutes Froylan Underwood MD Dec 16, 2016 14:57
== END 2016-11-24 12:25 | disposition home or self-care (01) | DRG 305 ==
LOC: SED 18:59 → MPC 22:00 → PCC 11-22 13:48
PROVIDERS: ADMIT Internal Medicine; ATTEND Internal Medicine
DX: I16.0 Hypertensive urgency (principal); N18.4 Chronic kidney disease, stage 4 (severe); I24.8 Other forms of acute ischemic heart disease; E11.9 Type 2 diabetes mellitus without complications; Z86.73 Personal history of transient ischemic attack (TIA), and cerebral infarction without residual deficits; G35 Multiple sclerosis; I12.9 Hypertensive chronic kidney disease with stage 1 through stage 4 chronic kidney disease, or unspecified chronic kidney disease; Z79.4 Long term (current) use of insulin; K21.9 Gastro-esophageal reflux disease without esophagitis; E78.5 Hyperlipidemia, unspecified

== ENCOUNTER 2016-12-08 11:05 | Emergency (ER) | payer OTHER ==
[~2016-12-08] VITALS: Ht 165.1 cm; Wt 65.0 kg
[~2016-12-08 11:05] MED LIST changes: +ASPI81TA3 PO; +CARV12.52 PO; +CARV6.252 PO; +FURO40TA4 PO; +INSU100C8 SUBQ; +INSU100V7 SUBQ; +LANS30CA PO; +LEVO125T6 PO; +LIP40 PO; +LOSA100T29 PO; +METO10TA3 PO; +METO50TA3 PO; +NIFE60TA62 PO; +PROM25TA14 PO
[2016-12-08] MEDS ORDERED: 0.9% Sodium Chloride 1,000 ML IV ONE ×2 (11:16→13:23)
[2016-12-08] MEDS ORDERED: Ondansetron 2 mg/mL 2 mL Inj IVPUSH PRN (11:20)
[2016-12-08 11:25] VITALS: BP 201/98; PULSE 98; O2SAT 100
--- NOTE | 2016-12-08 12:11 | ED.REPORT ---
HPI-NVD Date of Service Dec 08, 2016 ED Provider: Taylor Dominguez MD This is a 46 year old female with a history of ERSD, multiple sclerosis, CVA, DM type II insulin-dependant and hypertension presenting to the emergency department due to left sided head pain that began today morning. Describes left sided eye pain and history of recent sinus infections. Pt also had one episode emesis just prior to arrival. Associated symptoms include shaking chills. Pt also measured high blood pressure today. Denies nausea, vision changes, cough, abdominal pain, diarrhea, or constipation. Pt has vision loss in left eye after stroke. Pt had recent admission from 11/21-11/24/2016 for weakness and labile blood pressures. Nursing Notes Stated Complaint: VOMITING Chief Complaint: General Complaint Nursing Notes Reviewed: Yes Allergies: Coded Allergies: Penicillins (Verified Allergy, Mild, HIVES, 12/08/16) phenytoin (Verified Allergy, Mild, HIVES RASH, 12/08/16) Scheduled Aspirin Chew (Aspirin Chew) 81 Mg Chew 81 MG PO DAILY Atorvastatin (Lipitor) 40 Mg Tablet 40 MG PO HS Furosemide (Furosemide) 40 Mg Tablet 40 MG PO DAILY Insulin Aspart (NovoLOG U100 Insulin Vial) 100 U/Ml U 5 UNIT SUBQ TIDWM Insulin Glargine (Lantus U100 Insulin Vial) 100 Unit/Ml Vial 5 UNIT SUBQ QPM Lansoprazole (Lansoprazole) 30 Mg Capsule.dr 30 MG PO BID Levothyroxine (Levothyroxine) 125 Mcg Tablet 125 MCG PO QAM Losartan Potassium (Losartan Potassium) 100 Mg Tablet 100 MG PO DAILY Metoprolol Tartrate (Metoprolol Tartrate) 50 Mg Tablet 50 MG PO BID Nifedipine ER (Nifedipine ER) 60 Mg Tab.er.24 60 MG PO BID Ondansetron ODT (Ondansetron ODT) 8 Mg Tab.rapdis 8 MG PO Q8H Sulfamethoxazole/Trimeth 800-160 mg (Bactrim DS) 1 Each Tablet 1 TABLET PO BID Scheduled PRN Metoclopramide (Metoclopramide) 10 Mg Tablet 10 MG PO Q6H PRN PRN For Nausea Promethazine (Promethazine) 25 Mg Tablet 25 MG PO TID PRN PRN For Nausea General Time Seen by MD: 11:16 Chief Complaint Vomiting Hx Obtained From: Patient Arrived By: Walk-in Onset Occurred: Just prior to arrival Symptom Duration: Since onset Severity: Current: Mild Pertinent Negative: Pt denies other symptoms Recent Healthcare: No recent doctor visit, No recent hospitalization Similar Sx Previous: No Past Medical History Past Medical History Notes: PCP Dr. Kaplan Past Medical History ERSD CVA Multiple sclerosis Hx of UTIs Reports: Diabetes mellitus, Hypertension Past Surgical History Cholecystectomy Family History Noncontributory Smoking History Never Smoker Social History Other Social History: Local resident Ambulatory Status Independent Review of Systems Constitutional: Reports: Chills, Malaise, Weakness - generalized, Denies: Fever GI: Reports: Nausea, Vomiting, Denies: Abdominal pain, Constipation, Diarrhea Complete sys rev & neg: except as marked. Eyes: Reports: Eye pain left Cardiovascular: Denies: Chest pain Musculoskeletal: Denies: Back pain, Neck pain Physical Exam Initial Vital Signs Vital Signs (First) Date Time Temp Pulse Resp B/P Pulse Ox O2 Delivery O2 Flow Rate FiO2 12/08/16 11:25 35.0 98 201/98 100 Room Air 12/08/16 12:40 16 Initial VS: Reviewed ENT: Mucous membranes moist, Conjunctiva normal, No scleral icterus Neck: Supple, Non-tender, Full range of motion Respiratory: Breath sounds normal, Clear to auscultation, No respiratory distress Extremities: Vascular intact, Neuro intact, No swelling, No tenderness Skin: Warm, Dry, No cyanosis Neurologic: Alert, Oriented, Nonfocal Psychiatric: Mood/affect normal, Behavior normal, Normal thought content General/Constitutional: Awake, Alert Abdomen: Soft, Non-tender, McBurney's non-tender, No guarding, No rebound, BS normoactive, No distention, No hernia, No palpable mass Cardiovascular: Heart rate NL, Regular rhythm Heart Sounds / Murmur: Positive: Systolic murmur present.. (III/) Conjunctiva / Sclera: Positive: Injected left Tonopen was used on Left eye: 68, 68, 88 subscleral erythema and edema in left eye Interpretation & Diagnostics Interpretation & Diagnostics: Urine Dip: + protein + trace leuk esterase Will be sent for culture BRAIN CT IMPRESSION: 1. No acute intracranial abnormality. 2. No change in small chronic left cerebellar infarct. Dictated by: Mariella Brunson M.D. on 12/08/2016 at 14:27 Approved by: Mariella Brunson M.D. on 12/08/2016 at 14:28 Lab Results Interpretation Result Diagram: 12/08/16 1220 12/08/16 1220 Test 12/08/16 12:20 12/08/16 13:53 White Blood Count 17.3th/mm3 (3.8-10.1) Red Blood Count 3.80mil/mm3 (3.90-5.20) Hemoglobin 10.3g/dL (12.0-15.6) Hematocrit 32.2% (35.0-46.0) Mean Corpuscular Volume 84.7fL (81-100) Mean Corpuscular Hemoglobin 27.1pg (27.0-35.0) Mean Corpuscular Hemoglobin Concent 32.0% (32.0-37.0) Red Cell Distribution Width 13.4% (12.3-15.4) Platelet Count 322bil/L (150-400) Neutrophils (%) (Auto) 89.6% (40-74) Lymphocytes (%) (Auto) 8.2% (14-46) Monocytes (%) (Auto) 1.7% (4-12) Eosinophils (%) (Auto) 0.1% (0-5) Basophils (%) (Auto) 0.2% (0-3) Hold Urine Received (Received) Sodium Level 136mEq/L (134-144) Potassium Level 4.2mEq/L (3.5-5.2) Chloride Level 98mEq/L (97-108) Carbon Dioxide Level 20mmol/L (18-29) Blood Urea Nitrogen 73mg/dL (6-24) Creatinine 3.20mg/dL (0.57-1.00) Estimat Glomerular Filtration Rate 22mL/min (>59) Glucose Level 277mg/dL (60-99) Calcium Level 9.8mg/dL (8.5-10.1) Magnesium Level 2.1mg/dL (1.6-2.6) Total Bilirubin 0.2mg/dL (0.0-1.2) Aspartate Amino Transf (AST/SGOT) 18U/L (0-50) Alanine Aminotransferase (ALT/SGPT) 12U/L (0-32) Alkaline Phosphatase 70U/L (25-150) Total Protein 7.4g/dL (6.4-8.4) Albumin 4.2g/dL (3.4-5.0) Lipase 69U/L (13-60) Lactic Acid Level 1.4mmol/L (0.4-2.0) X-Ray Chest Interpretation Chest Xray Interpretation: IMPRESSION: No acute cardiopulmonary disease. Dictated by: Rob Wise M.D. on 12/08/2016 at 14:14 Approved by: Rob Wise M.D. on 12/08/2016 at 14:14 Re-Eval/Medical Decision Med Decision/Clinical Course recent glaucoma surgery with tubes in place. Discussed abnormal tonopen readings with the opthomologist, we both agreed that with pressures that high (68-88) her symptoms would be much more severe and likely represent either joe pen malfunction or felt cutting machine operator error on my part. Discussed discharge with our flame brazing machine operator. Given that she is able to eat and drink that her creatinine is close to her baseline she too felt that discharge home was appropriate. No signs or source for sepsis at this point will treat for a UTI will culture. Explained all of my thinking with Suzanna and asked her to have a very low threshold for returning to the emergency department should she get worse Re-Evaluation/Progress #1: Time of Eval: 13:26 Re-Evaluation/Progress Note: Discussed lab results Re-Evaluation/Progress #2: Time of Eval: 14:56 Re-Evaluation/Progress Note: Discussed plan for discharge, pt understands and agrees with plan, all questions addressed. Re-Evaluation/Progress #3: Re-Evaluation/Progress Note: phone call to patient 12/09/16 jack 10:30 am. voice message left to check on pt and make sure she got to the opthomolgist today. Blood cx are reviewed and remain negative to date. Consultation #1: Referral / Consult Name: Deisy Casanova MD Consulted With: Nephrology Call Returned at: 14:51 English Professor: Agrees with eval, Agrees with plan Consultation #2: Referral / Consult Name: Yuriy Peralta MD Call Returned at: 15:39 Note: Pt's metal lather from [facility]. Pt had glaucoma surgery in 07/2016 Consultation #3: Referral / Consult Name: Yuriy Peralta MD Call Returned at: 16:11 Note: Dr. Peralta disagrees with tonopen reading and states that pt has tubes to alleviate pressure since surgery, he will call her tomorrow to schedule an appointment. Counseled Regarding: Diagnosis, Lab results, Need for follow-up, When/why to return to ED Discharge & Departure Impression: Primary Impression: Renal insufficiency Additional Impression: Dehydration Ruled Out: Sinusitis Disposition: Home Discharge Condition All VS Reviewed: Yes Condition: Stable Additional Instructions: Thank you for seeking care in the emergency department. Your labs, x-ray, and CT scan of the head were reassuring. You do not have acute sinusitis or infection behind the left eye. I do not see evidence for pneumonia, menigitis or infection in your belly. I did see white blood cells in your urine and suspect that you have a bladder infection. You were given 2gm of IV ceftriaxone (antibiotic) in the ER and I am going to put you on Septra DS for a presumed bladder infection. Your heart rate and blood pressure are still a bit high and I believe this is an indication of your infection. There is no sign of sepsis (overwhelming infection) at this time. Your kidney function is close to your baseline. You are able to eat and drink, you need to make sure you are staying well hydrated. You need to follow up with the flame brazing machine operator, call tomorrow to schedule an appointment. Your metal lather, Dr. Peralta will call you tomorrow to schedule an appointment. Follow up with your primary care provider for persistent symptoms. Return to the emergency department for any new or worsening symptoms Referrals: Deisy Casanova MD [facility] Yuryi Peralta MD Attestation Portions of this note were transcribed by Sidney Gomez. I, Dr. Dominguez personally performed the history, physical exam and medical decision-making; I reviewed and confirmed the accuracy of the information in the transcribed note. Signed by: nahomy Simpson. 12/08/2016, 18:00. copies to: Deisy Casanova MD; [facility]; Yuriy Peralta MD, Shawna L MD Dec 08, 2016 12:11 SIDNEY GOMEZ Dec 08, 2016 12:20
[2016-12-08 12:32] LABS: BASOPHILS % (AUTO) 0.2 % (0-3); EOSINOPHILS % (AUTO) 0.1 % (0-5); MONOCYTES % (AUTO) 1.7 % (4-12); Mean Corpuscular Hemoglobin 27.1 pg (27.0-35.0); Mean Corpuscular Volume 84.7 fL (81-100); NEUTROPHILS % (AUTO) 89.6 % (40-74); Platelet Count 322 bil/L (150-400)
[2016-12-08 12:40] VITALS: BP 210/90; PULSE 97; RESP 16; O2SAT 98
[2016-12-08 13:01] LABS: Magnesium 2.1 mg/dL (1.6-2.6)
[2016-12-08] MEDS ORDERED: cefTRIAXone Inj 2,000 MG in Dextrose 5% Minibag Plus 50 ML IV ONE (13:25)
[2016-12-08 13:26] VITALS: BP 197/91; PULSE 96; RESP 15
--- NOTE | 2016-12-08 14:15 | DRSVH ---
PROCEDURE: X-RAY CHEST ONE VIEW, PORTABLE ([id number]) INDICATIONS: leukocytosis TECHNIQUE: One view of the chest was acquired. COMPARISON: [facility], CR, XR CHEST 1VW (PORTABLE), 11/22/2016, 12:15. FINDINGS: Surgical changes and devices: None. Lungs and pleura: No pleural effusions or pneumothorax. Lungs are clear. Mediastinum: Mediastinal contours appear normal. Heart size is normal. Bones and chest wall: No suspicious bony lesions. Overlying soft tissues appear unremarkable. IMPRESSION: No acute cardiopulmonary disease. Dictated by: Rob Wise M.D. on 12/08/2016 at 14:14 Approved by: Rob Wise M.D. on 12/08/2016 at 14:14
--- NOTE | 2016-12-08 14:29 | DRSVH ---
PROCEDURE: CT BRAIN WITHOUT CONTRAST ([id number]) INDICATIONS: Left eye, sinus pain, leukocytosis TECHNIQUE: Noncontrast 4.5 mm thick angled axial sections acquired from the foramen magnum to the vertex, with c oronal reformats. COMPARISON: [facility], CT, CT BRAIN WO CON, 11/22/2016, 11:23. FINDINGS: Image quality: Excellent. CSF spaces: Basal cisterns are patent. No extra-axial fluid collections. Ventricles are normal in size and shape. Brain: No midline shift. No change in small chronic left cerebellar infarct. No intracranial masses or hemorrhage. De Oliveira-white matter interface is normal. Skull and face: Calvarium and visualized facial bones are intact, without suspicious lesions. Sinuses: Visualized sinuses and mastoids are clear. IMPRESSION: 1. No acute intracranial abnormality. 2. No change in small chronic left cerebellar infarct. Dictated by: Mariella Brunson M.D. on 12/08/2016 at 14:27 Approved by: Mariella Brunson M.D. on 12/08/2016 at 14:28
[2016-12-08] MEDS ORDERED: SULF1TAB7 PO (16:15)
[2016-12-08 16:43] VITALS: BP 194/91; PULSE 94; RESP 16; O2SAT 98
[2016-12-08 16:46] VITALS: BP 197/91; PULSE 96; RESP 15; O2SAT 98
[2016-12-08] MEDS ORDERED: Ondansetron 8 mg ODT Tablet PO ONE (16:55)
== END 2016-12-08 16:47 | disposition home or self-care (01) ==
LOC: SED 11:05
DX: N28.9 Disorder of kidney and ureter, unspecified (principal); E86.0 Dehydration; E11.29 Type 2 diabetes mellitus with other diabetic kidney complication; N18.6 End stage renal disease; I12.0 Hypertensive chronic kidney disease with stage 5 chronic kidney disease or end stage renal disease; Z86.73 Personal history of transient ischemic attack (TIA), and cerebral infarction without residual deficits; Z79.82 Long term (current) use of aspirin; Z79.4 Long term (current) use of insulin; Z88.0 Allergy status to penicillin; Z88.8 Allergy status to other drugs, medicaments and biological substances
CPT/HCPCS: 36415; 70450; 71010; 80053; 83605; 83690; 83735; 85025; 87040; 87086; 87088; 96361; 96365; 96375; 99285; J0696; J2405; J7030

== ENCOUNTER 2017-03-07 09:07 | Inpatient (IN) | payer OTHER ==
[~2017-03-07] VITALS: Ht 165.1 cm; Wt 56.4 kg
[~2017-03-07 09:07] MED LIST changes: -CARV12.52 PO; -CARV6.252 PO; -CEPH-511 PO; +SULF1TAB7 PO
[2017-03-07 09:10] VITALS: BP 228/111; PULSE 93; RESP 18; O2SAT 98
--- NOTE | 2017-03-07 09:49 | ED.REPORT ---
HPI-General Illness Date of Service Mar 07, 2017 ED Provider: Zackary Valverde MD A 46 year old female with a history of ERSD s/p arterial port catheter, multiple sclerosis, CVA, diabetes mellitus type II insulin-dependant and hypertension presents to the ED complaining of catheter disfunction that occurred earlier this morning. Patient was seen at her dialysis clinic and they attempted dialysis for 10 minutes with no success. The on-call lot associate, Dr. Mejia, sent her to the ED to evaluate the catheter. She was given chloroxine and Activase in clinic. Patient is typically dialyzed 3 times per week since 12/2016. She denies any abdominal pain, nausea, vomiting, chest pain, SOB, one-sided numbness/weakness, fever or chills. Patient recently had left eye cataract surgery and has a follow-up appointment on 01/07. Nursing Notes Stated Complaint: FIX CATHETER/HIGH BLOOD PRESSURE Chief Complaint: General Complaint Nursing Notes Reviewed: Yes Allergies: Coded Allergies: Penicillins (Verified Allergy, Mild, HIVES, 03/07/17) phenytoin (Verified Allergy, Mild, HIVES RASH, 03/07/17) Scheduled Aspirin Chew (Aspirin Chew) 81 Mg Chew 81 MG PO DAILY Atorvastatin (Lipitor) 40 Mg Tablet 40 MG PO HS Cholecalciferol (Vitamin D3) (Vitamin D3) 2,000 Unit Capsule 2,000 UNIT PO DAILY Docusate Calcium (Stool Softener) 240 Mg Capsule 2 CAPSULE PO BID Furosemide (Furosemide) 40 Mg Tablet 80 MG PO DAILY Insulin Aspart (NovoLOG U100 Insulin Vial) 100 U/Ml U 10 UNIT SUBQ TIDWM Insulin Glargine (Lantus U100 Insulin Vial) 100 Unit/Ml Vial 20 UNIT SUBQ QPM Lansoprazole (Lansoprazole) 30 Mg Capsule.dr 30 MG PO BID Levothyroxine (Levothyroxine) 125 Mcg Tablet 125 MCG PO QAM Losartan Potassium (Losartan Potassium) 100 Mg Tablet 100 MG PO DAILY Metoprolol Tartrate (Metoprolol Tartrate) 50 Mg Tablet 50 MG PO HS Ondansetron ODT (Ondansetron ODT) 8 Mg Tab.rapdis 8 MG PO Q8H Scheduled PRN Metoclopramide (Metoclopramide) 10 Mg Tablet 10 MG PO Q6H PRN PRN For Nausea Promethazine (Promethazine) 25 Mg Tablet 25 MG PO BID PRN PRN For Nausea General Time Seen by MD: 09:28 Chief Complaint Other (Catheter displacement) Hx Obtained From: Patient Arrived By: Walk-in Sudden in Onset?: No Onset Occurred: 5 - 8 hours ago Symptom Duration: Since onset Associated with: Denies: Abdominal pain, Chest pain, Fever, Nausea, Vomiting Pertinent Negative: Pt denies other symptoms Recent Healthcare: Recent doctor visit (11/2016: Renal insufficiency), Recent hospitalization (11/2016: STEMI) Past Medical History Past Medical History Notes: PCP Dr. Kaplan Past Medical History 1. ERSD 2. CVA 3. Multiple sclerosis 4. Hx of UTIs Reports: Diabetes mellitus, Hypertension Past Surgical History Cholecystectomy Cataract surgery Reports: Cataract surgery Family History Noncontributory Smoking History Never Smoker Social History Other Social History: Good social support, Local resident Ambulatory Status Independent Review of Systems catheter disfunction Full Review of Systems Constitutional: Denies: Chills, Fever Respiratory: Denies: Shortness of breath Cardiovascular: Denies: Chest pain GI: Denies: Abdominal pain, Nausea, Vomiting Neurologic: Denies: Numbness, Weakness Complete sys rev & neg: except as marked. Physical Exam Nursing note and vitals reviewed. Constitutional: Well-developed, well-nourished. Not diaphoretic. Head: Normocephalic and atraumatic. Mouth/Throat: Oropharynx is clear and moist. No oropharyngeal exudate. Eyes: EOM are normal. Pupils are equal, round, and reactive to light. Swelling to the left lid. Neck: Supple, no tracheal deviation. Cardiovascular: Normal rate, regular rhythm. Equal and intact distal pulses throughout. Pulmonary/Chest: Effort normal and breath sounds normal. No respiratory distress. Abdominal: Soft. No distension. There is no tenderness, rebound, or guarding. Bowel sounds present. Catheter site is clean, intact and dry. Musculoskeletal: Range of motion grossly intact, moving all extremities. No edema or tenderness appreciated. Neurological: AOx3. Grossly nonfocal exam. Strength and sensation intact and equal to bilateral upper and lower extremities. Skin: Warm and dry, no rashes or pallor appreciated. Psychiatric: Appropriate mood and affect. Behavior appears normal. Vital Signs Vital Signs Date Time Temp Pulse Resp B/P Pulse Ox O2 Delivery O2 Flow Rate FiO2 03/07/17 09:10 36.6 93 18 228/111 98 Room Air Initial VS: Reviewed Interpretation & Diagnostics Lab Results Interpretation Result Diagram: 03/07/17 1025 03/07/17 1025 Test 03/07/17 10:25 White Blood Count 11.9th/mm3 (3.8-10.1) Red Blood Count 4.51mil/mm3 (3.90-5.20) Hemoglobin 12.4g/dL (12.0-15.6) Hematocrit 40.3% (35.0-46.0) Mean Corpuscular Volume 89.4fL (81-100) Mean Corpuscular Hemoglobin 27.5pg (27.0-35.0) Mean Corpuscular Hemoglobin Concent 30.8% (32.0-37.0) Red Cell Distribution Width 14.5% (12.3-15.4) Platelet Count 301bil/L (150-400) Neutrophils (%) (Auto) 78.6% (40-74) Lymphocytes (%) (Auto) 15.8% (14-46) Monocytes (%) (Auto) 3.2% (4-12) Eosinophils (%) (Auto) 1.7% (0-5) Basophils (%) (Auto) 0.3% (0-3) Sodium Level 140mEq/L (134-144) Potassium Level 5.5mEq/L (3.5-5.2) Chloride Level 100mEq/L (97-108) Carbon Dioxide Level 26mmol/L (18-29) Blood Urea Nitrogen 53mg/dL (6-24) Creatinine 3.47mg/dL (0.57-1.00) Estimat Glomerular Filtration Rate 20mL/min (>59) Glucose Level 227mg/dL (60-99) Calcium Level 9.6mg/dL (8.5-10.1) Magnesium Level 2.3mg/dL (1.6-2.6) Total Bilirubin 0.2mg/dL (0.0-1.2) Aspartate Amino Transf (AST/SGOT) 35U/L (0-50) Alanine Aminotransferase (ALT/SGPT) 30U/L (0-32) Alkaline Phosphatase 84U/L (25-150) Total Protein 6.6g/dL (6.4-8.4) Albumin 3.8g/dL (3.4-5.0) ECG Interpretation ECG Interpretation: Sinus Rhythm Rate 94 Non specific T abnormalities; lateral leads Time: 12:17 Interpreted by: ED physician Normal ECG Interpretation: No change from prior ECGs (11/22/16) X-Ray Chest Interpretation Chest Xray Interpretation: IMPRESSION: No complication from placement of double lumen catheter from the right side. Tip is just beyond the azygos vein in the region of superior vena cava. Dictated by: Zohaib Agarwal M.D. on 03/07/2017 at 11:02 Interpretation / Wet Read by: Interpret - Radiologist Re-Eval/Medical Decision Med Decision/Clinical Course 46F w/ ESRD, DM here because dialysis catheter wasn't functioning earlier today. Hypertensive, mild hyperkalemia. No symptoms at this time. Talked w/ radiology - they can replace catheter tomorrow. Hospitalist to admit for further management and eval, telemetry. Patient agreeable, no further questions. Time of Eval: 11:50 Patient Status: Condition improved Re-Evaluation/Progress Note: Patient is reassessed. Condition is stable. She is informed of the treatment plan to admit. Consultation : Consulted With: Hospitalist Call Returned at: 12:06 Note: Dr. Godoy Counseled Regarding: Diagnosis, Lab results, Need for admission Discharge & Departure Primary Impression: Hyperkalemia Additional Impression: ESRD on dialysis Disposition: ADMITTED TO HOSPITAL Discharge Condition All VS Reviewed: Yes Condition: Improved Referrals: OTHER,PHYSICIAN (PCP) (Family) Scribe Attestation Portions of this note were transcribed by Uvaldo Whitehead. I, Dr. Valverde personally performed the history, physical exam and medical decision-making; I reviewed and confirmed the accuracy of the information in the transcribed note. Signed by: Ghada Tony, 03/07/17 1230. Zackary Valverde MD Mar 07, 2017 09:49 UVALDO WHITEHEAD Mar 07, 2017 10:01
[2017-03-07 10:44] LABS: BASOPHILS % (AUTO) 0.3 % (0-3); EOSINOPHILS % (AUTO) 1.7 % (0-5); MONOCYTES % (AUTO) 3.2 % (4-12); Mean Corpuscular Hemoglobin 27.5 pg (27.0-35.0); Mean Corpuscular Volume 89.4 fL (81-100); NEUTROPHILS % (AUTO) 78.6 % (40-74); Platelet Count 301 bil/L (150-400)
--- NOTE | 2017-03-07 11:04 | DRSVH ---
PROCEDURE: X-RAY CHEST ONE VIEW, PORTABLE ([id number]) INDICATIONS: DIALYSIS CATH PLACEMENT TECHNIQUE: One view of the chest was acquired. COMPARISON: [facility], CR, XR CHEST 1VW (PORTABLE), 12/08/2016, 13:31. FINDINGS: Surgical changes and devices: Dialysis catheter has been placed the tip of which is just beyond the a zygos vein. It is in the superior vena cava in this view. monitoring specialist leads are seen over the l[address] st Lungs and pleura: No pleural effusions or pneumothorax. Lungs are clear. Mediastinum: Mediastinal contours appear normal. Heart size is normal. Bones and chest wall: No suspicious bony lesions. Overlying soft tissues appear unremarkable. IMPRESSION: No complication from placement of double lumen catheter from the right side. Tip is just beyond the azygos vein in the region of superior vena cava. Dictated by: Zohaib Agarwal M.D. on 03/07/2017 at 11:02 Approved by: Zohaib Agarwal M.D. on 03/07/2017 at 11:02
[2017-03-07 11:10] LABS: Magnesium 2.3 mg/dL (1.6-2.6)
[2017-03-07] MEDS ORDERED: CHOL200047 PO (12:28)
[2017-03-07] MEDS ORDERED: DOCU240C41 PO (12:29)
[2017-03-07] MEDS ORDERED: Alum-Mag Hydrox-Simeth 30 mL Suspension PO PRN (12:30)
[2017-03-07] MEDS ORDERED: Ondansetron 2 mg/mL 2 mL Inj IVPUSH PRN (12:30)
[2017-03-07] MEDS: Ondansetron 8 mg ODT Tablet PO SCH ×2 (12:30→20:30)
[2017-03-07] MEDS ORDERED: Polyethylene Glycol (PEG) 17 Gm Powder PO PRN (12:30)
[2017-03-07] MEDS ORDERED: Glucose 40% Oral Gel 15 Gm Tube PO PRN (12:40)
[2017-03-07] MEDS ORDERED: Dextrose 10% 250 ML IV PRN (12:40)
[2017-03-07 14:59] VITALS: BP 190/77; PULSE 94; RESP 12; O2SAT 96
--- NOTE | 2017-03-07 14:59 | NUR ---
Arrival to CCU Patient escorted from ED to room 2011. Ambulated from cart to bed with steady gait. Alert and oriented to person, place and time. Denies chest pain. Minor burning/itching reported in left eye, pt reports she had cataract surgery this past week. air sampling and monitoring applied, SR in the 90s. Hypertensive, 190s/70s. Denies SOA. Sp02 > 92 % on room air. Patient oriented to room and call light. Plan of care reviewed at bedside. Will continue to monitor.
[2017-03-07] MEDS ORDERED: VIGAMOX BOTH_EYES (15:06)
[2017-03-07] MEDS ORDERED: DIFL5DRO AFFECT_EYE (15:07)
[2017-03-07] MEDS: Sodium Chloride LOK Flush 10 mL Syringe IVFLUSH SCH (15:15)
--- NOTE | 2017-03-07 15:15 | PCM.HPMED ---
Subjective Date of Service Mar 07, 2017 Primary Provider: Admitting Physician: Jagjit Cooney MD Primary Care Physician: Other,Physician Attending Physician: Jagjit Cooney MD Admit Status: From the Emergency Department, Admit to Yellow Team Chief Complaint: 46-year-old woman with type II diabetes mellitus hypertension and ESRD on hemodialysis presents with dialysis catheter malfunction, and hypertensive urgency History of Present Illness: Patient was in her usual state of health when she presented for hemodialysis today. Her hemodialysis catheter was placed in December and she has had intermittent difficulties since that time, but has never been unable to undergo dialysis. Today they were unable to get any flow from the catheter. Interventional radiology department was unable to replace the catheter today, but will do so tomorrow. The patient has no symptoms. Her blood pressure was noted to be markedly elevated this morning. She specifically denies headache, dyspnea, chest pain, back or abdominal pain. She states that her blood pressure systolic at home is usually 110-120, but that she has had episodes of hypertensive urgency in the past. Review of Systems: 11 systems were reviewed and significant findings are noted in the history of present illness. Incidental note is made of bilateral coryza due to glaucoma surgery 3 days prior to admission, for which she takes eyedrops frequently. Allergies Coded Allergies: Penicillins (Verified Allergy, Mild, HIVES, 03/07/17) phenytoin (Verified Allergy, Mild, HIVES RASH, 03/07/17) Home Medications Aspirin 81 mg daily Atorvastatin 40 mg daily Cholecalciferol 2000 units daily Furosemide 80 mg daily Insulin aspart 3 times a day with meals Insulin glargine 20 units each evening Lansoprazole 30 mg twice a day Levothyroxine 125 g daily Losartan 100 mg daily Metoclopramide 10 mg 4 times a day when necessary Metoprolol titrate 50 mg at bedtime Ondansetron 8 mg 3 times a day when necessary Promethazine 25 mg twice a day when necessary Ophthalmologic drops Moxifloxacin 1 drop every 2 hours Durezol (corticosteroid) every 2 hours PMH # Hypertension - admission with hypertensive urgency 12/05 # Type II diabetes mellitus - on multiple daily injection insulin, Lantus glargine # ESRD - recently initiated on hemodialysis # Multiple sclerosis # History of CVA - no residua # Hypothyroidism on replacement # History of elevated troponin Social History Hx Alcohol Use: No Hx Substance Use: No Hx Tobacco Use: No Smoking Status: Never Smoker Living Arrangement: with Family Exam Vital Signs Vital Sign - Last Date Time Temp Pulse Resp B/P Pulse Ox O2 Delivery O2 Flow Rate FiO2 03/07/17 14:59 94 12 190/77 96 Room Air 03/07/17 14:59 36.6 Exam General: Healthy-appearing woman no acute distress HEENT: Bilateral coryza, left sclera injected, sclerae anicteric, oral mucosa moist Neck: no JVD Chest: clear to auscultation Cardiac: S1S2, no gallop, murmurII/ at LUSB Abdomen: BS normal, non-tender Extremities: No pitting edema Neuro: A&O, cranial nerves symmetric, motor strength 5/5, coordination normal Lab and Diagnostics Result Diagram: 03/07/17 1025 03/07/17 1025 12-lead ECG Sinus rhythm rate 100, normal conduction intervals, normal axis, poor precordial progression, nonspecific lateral ST-T wave changes Assessment & Plan 46-year-old woman with hypertension, diabetes mellitus and ESRD presented to emergency department with dialysis catheter malfunction and found to have hypertensive urgency Acute, Active or High-risk Problems: # Hypertensive urgency, present on admission. Initial blood pressure 2-8/111 with HR 93. No symptoms. - Continue usual oral meds - metoprolol, losartan - Nicardipine drip - target systolic less than 170 - Furosemide # Hemodialysis catheter malfunction, present on admission. - Nothing by mouth after midnight for interventional radiology procedure on 12/06 - Check CBC and coags - No V TE chemoprophylaxis # Type II diabetes mellitus, chronic. - 4 times a day capillary blood glucose - Glucose control goals: Random less than 180, fasting less than 140, none less than 70 - Insulin as needed, divided 50-50 long-acting and nutritional/correctional # Glaucoma, present on admission. Recent surgery. - [facility] pharmacy does not stock her drops. - Okay for patient to use medications from home - Temporize with ocular ofloxacin and prednisolone today Chronic or Stable but Actively Managed Problems: # Hypothyroidism on replacement # Multiple sclerosis - ocular symptoms without new CAT scan findings in 11/2016 # History of CVA Disposition: Patient will be admitted under observation status with expectation of normalization of blood pressure and replacement of dialysis catheter on 03/08. Pain Evaluation: Adequate Pain Control GI Prophylaxis: Not indicated Resuscitation Status: CPR: Attempt Resuscitation Time spent 60 minutes Jagjit Cooney MD Mar 07, 2017 15:15
[2017-03-07] MEDS: NiCARdipine Inj 25 MG in Dextrose 5% 240 ML IV SCH ×2 (15:31→19:32)
[2017-03-07 17:08] VITALS: BP 143/75; PULSE 92; RESP 14; O2SAT 93
[2017-03-07] MEDS: PREDNISOLONE 1% LEFT_EYE SCH ×2 (17:10→21:22)
[2017-03-07] MEDS: Insulin LISPRO 300 Unit/3 mL Inj SUBQ SCH ×2 (17:14→21:18)
[2017-03-07] MEDS ORDERED: Insulin GLARgine 100 Unit/mL Syringe SUBQ SCH (21:00)
[2017-03-07 21:06] VITALS: BP 134/71; PULSE 85; RESP 12; O2SAT 97
[2017-03-07] MEDS: Lansoprazole 30 mg ODTablet PO SCH (21:20)
[2017-03-08] VITALS (10 sets, daily range): BP systolic 115–159; BP diastolic 67–79; PULSE 72–94; RESP 8–18; O2SAT 95–99
[2017-03-08] MEDS: Sodium Chloride LOK Flush 10 mL Syringe IVFLUSH SCH ×2 (01:00→11:40)
[2017-03-08] MEDS: NiCARdipine Inj 25 MG in Dextrose 5% 240 ML IV SCH ×2 (02:43→03:35)
[2017-03-08 03:07] LABS: BASOPHILS % (AUTO) 0.4 % (0-3); EOSINOPHILS % (AUTO) 3.1 % (0-5); MONOCYTES % (AUTO) 9.6 % (4-12); Mean Corpuscular Hemoglobin 27.7 pg (27.0-35.0); Mean Corpuscular Volume 89.6 fL (81-100); NEUTROPHILS % (AUTO) 49.3 % (40-74); Platelet Count 290 bil/L (150-400)
[2017-03-08] MEDS: Ondansetron 8 mg ODT Tablet PO SCH ×2 (04:09→12:30)
--- NOTE | 2017-03-08 04:19 | NUR ---
Transfer Pt transferred out of CCU to PCC room 2002, care assumed at 2130. Pt BP stable, along with other vitals. Pt A&Ox3, denies significant pain. States eye is uncomfortable d/t recent surgery, eye drops administered. Pt NPO at AK for 0700 procedure. Pt aware and agreeable with plan. See flowsheet for full assessment,
[2017-03-08] MEDS: PREDNISOLONE 1% LEFT_EYE SCH ×2 (06:09→11:42)
[2017-03-08] MEDS ORDERED: Heparin 1,000 Unit/mL 10 mL Inj ONE (06:46)
[2017-03-08] MEDS ORDERED: Heparin 10,000 Unit/1,000 mL NS Premix IV ONE (06:46)
[2017-03-08] MEDS ORDERED: fentaNYL-PF 50 mCg/mL 2 mL Inj ONE (07:20)
[2017-03-08] MEDS ORDERED: Vancomycin 1,000 mg Inj ONE (07:27)
[2017-03-08] MEDS ORDERED: 0.9% Sodium Chloride 250 ML ONE (07:27)
--- NOTE | 2017-03-08 08:45 | DRSVH ---
PROCEDURE: X-RAY CHEST ONE VIEW, PORTABLE ([id number]) INDICATIONS: CATETHER PLACEMENT TECHNIQUE: One view of the chest was acquired. COMPARISON: None. FINDINGS: Surgical changes and devices: Large bore right central venous catheter with the tip projecting in the lower SVC. Lungs and pleura: No pleural effusions or pneumothorax. Lungs are clear. Mediastinum: Mediastinal contours appear normal. Heart size is normal. Bones and chest wall: No suspicious bony lesions. Overlying soft tissues appear unremarkable. IMPRESSION: No acute disease. No pneumothorax, status post placement of central venous catheter. Dictated by: Evan Hung M.D. on 03/08/2017 at 8:42 Approved by: Evan Hung M.D. on 03/08/2017 at 8:43
--- NOTE | 2017-03-08 08:49 | NUR ---
Post Tunnel Cath replacement: Patient arrived to CCU room 2011 post tunnel cath replacement at 0800. A&O X3. Denies Pain. Tele: Sinus 70's. Denies CP/palpitations. Respirations regular/shallow, RR 8-10. SPO2: mid to high 90's on RA. VSS. No bleeding, bruising or pain to R chest tunnel cath. Bio occlusive dressing C/D/I. PIV infusing 1Gm Vanco in NS 1000mL @ 133 mL/hr.
--- NOTE | 2017-03-08 11:01 | NUR ---
CCU to PCC Pt transferred back to [facility] at approximately 1100. Pt VSS. No pain or crepitus at tunnel cath site. Pt states she is ready for morning medications and lunch. Care continues.
[2017-03-08] MEDS: Insulin LISPRO 300 Unit/3 mL Inj SUBQ SCH ×2 (11:37→12:00)
[2017-03-08] MEDS: Lansoprazole 30 mg ODTablet PO SCH (11:41)
--- NOTE | 2017-03-08 12:53 | NUR ---
Dialysis Pt starting Dialysis in room at approximately 1230. Care continues.
--- NOTE | 2017-03-08 13:43 | NUR ---
Social Work: Screen D: Per EMR review, pt is a 46 year old female admitted for Hyperkalemia/CKD. Pt is [employer] insurance. PCP is listed as other physician. NOK is Zohaib Andre, Father. Advanced directives provided to patient. No RA score entered at this time. A: Pt lives in [place] with family. She is I at baseline. Pt completes dialysis at [facility] on //Thursday. P: Evolving; Anticipate pt to discharge home via POV. [employer] ASSEMBLER to continue to follow for discharge needs. RAYSA Mendoza
--- NOTE | 2017-03-08 14:21 | CONS ---
[address] [address] CONSULTATION REPORT PATIENT: RUTHANN ROMEO : 1970 MR#: [id number] ADMIT: 03/07/2017 JOB ID: [id number] DATE OF SERVICE: 03/08/2017 REQUESTING PHYSICIAN: Jagjit Cooney MD. REASON FOR CONSULTATION: Management of end-stage renal disease. CHIEF COMPLAINT: Malfunctioning hemodialysis catheter. PRESENT ILLNESS: This is a very pleasant, 46-year-old, lady with significant past medical history of end-stage renal disease, on hemodialysis every Thursday, , Thursday, multiple sclerosis, CVA, type 2 diabetes and hypertension, who presented to the emergency department with the complaint of malfunctioning hemodialysis catheter. The patient was started on hemodialysis in December 2016. She is dialyzed at [facility] in [place]. She also had a peritoneal dialysis catheter placement a couple weeks ago and which it has not been used. The patient reported that the hemodialysis catheter has not been working well. Her on-call rebar bender recommended to send her to the ED for catheter exchange. The procedure was performed by Dr. George this morning. The procedure went well without complications. Nephrology was consulted to resume dialysis while she is being hospitalized. PAST MEDICAL HISTORY: 1. Hypertension with hypertensive nephrosclerosis. 2. Insulin-dependent diabetes. 3. End-stage renal disease, on hemodialysis every Thursday, , Thursday. 4. Multiple sclerosis. 5. CVA. PAST SURGICAL HISTORY: 1. Status post right tunneled catheter placement. 2. Status post PD catheter placement in January 2017. 3. Status post cholecystectomy. 4. Status post cataract surgery. FAMILY HISTORY: Noncontributory. SOCIAL HISTORY: Denies current use of alcohol, tobacco, or illicit drugs. ALLERGIES: 1. PENICILLINS. 2. PHENYTOIN. MEDICATIONS: 1. Aspirin. 2. Lipitor. 3. Vitamin D3. 4. Colace. 5. Furosemide. 6. Lantus. 7. Lovenox. 8. Lansoprazole. 9. Levothyroxine. 10. Losartan. 11. Metoprolol. 12. Zofran. REVIEW OF SYSTEMS: Fourteen-point review of system was performed. PHYSICAL EXAM: Temperature 36.8, pulse 77, respiratory rate 18, blood pressure 159/79, O2 sat 95% on room air. General appearance: Awake, alert, oriented x3. Not in acute distress. HEENT: No pallor. No jaundice. No JVD. No lymphadenopathy. No thyroid enlargement. Heart: Regular rhythm. Normal S1, S2. No murmurs, rubs, or gallops. Lungs: Clear to auscultation bilaterally. No wheezing. No rhonchi. Abdomen: Soft, active bowel sounds. PD catheter in place. No active drainage. Nontender. Nondistended. No hepatosplenomegaly. Extremities: No edema, cyanosis or clubbing of fingers. Skin: Right tunneled catheter in place on the right upper chest. No active bleeding. No drainage. LABORATORY: Sodium 140, potassium 4.6, chloride 101, bicarb 25, BUN 63, creatinine 4.01, glucose 107. ASSESSMENT: 1. Malfunctioning hemodialysis catheter, status post exchange. 2. Hyperkalemia. 3. Hypertension with hypertensive nephrosclerosis. 4. Insulin-dependent diabetes with diabetic nephropathy. 5. CVA. 6. Multiple sclerosis. Per renal standpoint, we will run a short dialysis today, 2 hours, to check if the dialysis catheter is working. Will put her on 2 potassium bath and with 1 L ultrafiltration. Of note,her typical dialysis duration is 2-1/2 hours. Her next dialysis will be performed again on Thursday. The patient will follow up with her primary rebar bender next week. If patient is stable after hemodialysis, she can be discharged home today. Thank you for allowing me to participate in the care of your patient. We will monitor along with you. DAMARIS
--- NOTE | 2017-03-08 15:07 | PCM.DIMED ---
Discharge Instructions Date of Service Mar 08, 2017 Dates of Hospitalization Mar 07, 2017 at 14:41 Discharge Diagnosis Discharge Diagnosis Hemodialysis catheter malfunction End-stage renal disease Accelerated hypertension Diabetes mellitus Medication Instructions Additional med instructions No medications have been changed. Diet Discharge Diet: Diabetic, Renal Diet Activity Discharge Activity: No restrictions Call your provider Call your provider for: Other (headache, severe chest pain or confusion, which may be signs of excessively high blood pressure) Patient Instructions Patient Instructions Check his blood pressure at home and contact your physician if your systolic blood pressure is consistently above 140 1 m mercury. Follow-up with your usual dialysis care team. Also contact primary care provider for routine posthospital follow-up including blood pressure check. Jagjit Cooney MD Mar 08, 2017 15:07
--- NOTE | 2017-03-08 15:14 | PCM.DC.MED ---
Discharge Summary Date of Service Mar 08, 2017 Dates of Hospitalization Date of Hospital Admission Mar 07, 2017 at 14:41 Date of Discharge: Mar 08, 2017 Providers: Admitting Physician: Jagjit Cooney MD Primary Care Physician: Other,Physician Attending Physician: Jagjit Cooney MD Diagnosis at Time of Discharge Diagnosis at Time of Discharge Hemodialysis catheter malfunction End-stage renal disease Accelerated hypertension Diabetes mellitus Consultations Nephrology, Dr. Loya Procedures XRay, CTs & MRIs PROCEDURE: X-RAY CHEST ONE VIEW, PORTABLE ([id number]) INDICATIONS: CATETHER PLACEMENT FINDINGS: IMPRESSION: No acute disease. No pneumothorax, status post placement of central venous catheter. Dictated by: Evan Hung M.D. on 03/08/2017 at 8:42 . ECG 12 Lead Sinus rhythm rate 100, normal conduction intervals, normal axis, poor precordial progression, nonspecific lateral ST-T wave changes Brief History Patient was in her usual state of health when she presented for hemodialysis today. Her hemodialysis catheter was placed in December and she has had intermittent difficulties since that time, but has never been unable to undergo dialysis. Today they were unable to get any flow from the catheter. Interventional radiology department was unable to replace the catheter today, but will do so tomorrow. The patient has no symptoms. Her blood pressure was noted to be markedly elevated this morning. She specifically denies headache, dyspnea, chest pain, back or abdominal pain. She states that her blood pressure systolic at home is usually 110-120, but that she has had episodes of hypertensive urgency in the past. Hospital Course # Hypertensive urgency, present on admission. Initial blood pressure 228/111 with HR 93. No symptoms. - Continue usual oral meds - metoprolol, losartan - Nicardipine drip - target systolic less than 170 - Furosemide - Resolved within 12 hours # Hemodialysis catheter malfunction, present on admission. - Interventional radiology procedure on 12/06 replaced hemodialysis catheter without pneumothorax subsequently underwent hemodialysis as an inpatient - Continue ambulatory Thursday, and Thursday hemodialysis until PD catheter is initiated in the near future # Type II diabetes mellitus, chronic. -No changes to previous management # Glaucoma, present on admission. Recent surgery. -Patient to continue with her eyedrops # Hypothyroidism on replacement # Multiple sclerosis - ocular symptoms without new CAT scan findings in 11/2016 # History of CVA . Exam Vital Signs (Last) Date Time Temp Pulse Resp B/P Pulse Ox O2 Delivery O2 Flow Rate FiO2 03/08/17 12:18 36.8 77 18 159/79 95 Room Air Exam General: Healthy-appearing, no acute distress HEENT: sclerae anicteric Chest: clear to auscultation Cardiac: S1S2, no murmur Abdomen: BS normal, non-tender Extremities: No edema Neuro: A&O, cranial nerves symmetric, motor strength and coordination normal Test 03/07/17 10:25 03/07/17 14:50 03/08/17 02:47 Magnesium Level 2.3mg/dL (1.6-2.6) Total Bilirubin 0.2mg/dL (0.0-1.2) Aspartate Amino Transf (AST/SGOT) 35U/L (0-50) Alanine Aminotransferase (ALT/SGPT) 30U/L (0-32) Alkaline Phosphatase 84U/L (25-150) Total Protein 6.6g/dL (6.4-8.4) Albumin 3.8g/dL (3.4-5.0) Hold Dow Top Tube Received (Received) Hold Urine Received (Received) White Blood Count 12.8th/mm3 (3.8-10.1) Red Blood Count 4.05mil/mm3 (3.90-5.20) Hemoglobin 11.2g/dL (12.0-15.6) Hematocrit 36.3% (35.0-46.0) Mean Corpuscular Volume 89.6fL (81-100) Mean Corpuscular Hemoglobin 27.7pg (27.0-35.0) Mean Corpuscular Hemoglobin Concent 30.9% (32.0-37.0) Red Cell Distribution Width 14.5% (12.3-15.4) Platelet Count 290bil/L (150-400) Neutrophils (%) (Auto) 49.3% (40-74) Lymphocytes (%) (Auto) 37.4% (14-46) Monocytes (%) (Auto) 9.6% (4-12) Eosinophils (%) (Auto) 3.1% (0-5) Basophils (%) (Auto) 0.4% (0-3) Prothrombin Time 10.7sec (8.1-12.5) Prothromb Time International Ratio 1.00ratio Sodium Level 140mEq/L (134-144) Potassium Level 4.6mEq/L (3.5-5.2) Chloride Level 101mEq/L (97-108) Carbon Dioxide Level 25mmol/L (18-29) Blood Urea Nitrogen 63mg/dL (6-24) Creatinine 4.01mg/dL (0.57-1.00) Estimat Glomerular Filtration Rate 17mL/min (>59) Glucose Level 107mg/dL (60-99) Calcium Level 9.3mg/dL (8.5-10.1) Discharge Medications Discharge Medications Aspirin Chew (Aspirin Chew) 81 Mg Chew 81 MG PO DAILY (Reported) Atorvastatin (Lipitor) 40 Mg Tablet 40 MG PO HS (Reported) Cholecalciferol (Vitamin D3) (Vitamin D3) 2,000 Unit Capsule 2,000 UNIT PO DAILY (Reported) Difluprednate (Durezol) 5 Ml Drops 5 ML AFFECT_EYE Q2H (Reported) Docusate Calcium (Stool Softener) 240 Mg Capsule 2 CAPSULE PO BID (Reported) Furosemide (Furosemide) 40 Mg Tablet 80 MG PO DAILY (Reported) Insulin Aspart (NovoLOG U100 Insulin Vial) 100 U/Ml U 10 UNIT SUBQ TIDWM ( Reported) Insulin Glargine (Lantus U100 Insulin Vial) 100 Unit/Ml Vial 20 UNIT SUBQ QPM ( Reported) Lansoprazole (Lansoprazole) 30 Mg Capsule.dr 30 MG PO BID (Reported) Levothyroxine (Levothyroxine) 125 Mcg Tablet 125 MCG PO QAM (Reported) Losartan Potassium (Losartan Potassium) 100 Mg Tablet 100 MG PO DAILY (Reported ) Metoprolol Tartrate (Metoprolol Tartrate) 50 Mg Tablet 50 MG PO HS (Reported) Moxifloxacin Ophth Soln (Vigamox Ophth Soln) 3 Ml Soln 1 DROP BOTH_EYES Q2H ( Reported) Ondansetron ODT (Ondansetron ODT) 8 Mg Tab.rapdis 8 MG PO Q8H Prescribed by: MANUEL ARCHIBALD MD As needed Metoclopramide (Metoclopramide) 10 Mg Tablet 10 MG PO Q6H PRN PRN For Nausea ( Reported) Promethazine (Promethazine) 25 Mg Tablet 25 MG PO BID PRN PRN For Nausea ( Reported) Additional med instructions No medications have been changed. Followup Plan Follow-up plan Hydro Operator, Dr. Mejia in [place] Discharge Diet: Diabetic, Renal Diet Discharge Activity: No restrictions Patient Instructions Check blood pressure at home and contact your physician if your systolic blood pressure is consistently above 140 1 m mercury. Follow-up with your usual dialysis care team. Also contact primary care provider for routine posthospital follow-up including blood pressure check. Time spent 25 minutes Jagjit Cooney MD Mar 08, 2017 15:14 Check blood pressure at home and contact your physician if your systolic blood pressure is consistently above 140 1 m mercury. Follow-up with your usual dialysis care team. Also contact primary care provider for routine posthospital follow-up including blood pressure check. Time spent 25 minutes Jagjit Cooney MD Mar 08, 2017 15:14
--- NOTE | 2017-03-08 15:50 | NUR ---
Dialysis note 2 hrs HD 1500ml net UF removed VSS thru tx. See DTR for complete vitals. Pt admitted for catheter manipulation for non functioning catheter d'c after tx Hepatitis status unknown. Machine will bleach Catheter function continues to be poor. Only reliably achieving a QB of 250 Increased QD to 800 and put on a Revaclear Max to increase clearance Dr. Ludwig aware of cath function. Catheter dsg applied. Dwelled with 1000/1 U Heparin and secured.
--- NOTE | 2017-03-08 16:31 | NUR ---
Discharge Pt discharged to home with Dad at approximately 1610 after Dialysis. Pt given educational material for tunneled central line catheter aftercare and discharge care. Next dose to be taken clearly written and dated. Pt acknowledged and understood all information. IV's DC'd with catheter intact. Followup instructions with PCP and Ad Trafficker. Pt left with all personal belongings. Pt escorted by this RN to door.
--- NOTE | 2017-03-09 08:40 | DRSVH ---
PROCEDURE: CV REPLACE CATH TUNLD 1. Conscious sedation for 30 minutes. 2. Right internal jugular vein tunneled hemodialysis catheter placement. 3. Fluoroscopic guidance for catheter placement. INDICATIONS: ESRD TECHNIQUE: The indications, alternatives, benefits, risks, and complications of the procedure were e xplained to the patient and any family members present. Informed written consent was obtained and pl aced in the chart. The patient was brought to the angiography suite, and conscious sedation was admi nistered intravenously by long term staff, while continuous cardiorespiratory monitoring was pe rformed. Maximum sterile barrier technique was employed per standard protocol, including hand hygiene, cap, ma sk, sterile gown and gloves, and 2% chlorhexidine. Sterile ultrasound probe cover was also utilized. 1% lidocaine was used for local anaesthesia. 2 stiff Glidewire were advanced through the lumen of th e existing tunneled hemodialysis catheter. The catheter was removed, and a new catheter was placed wi th the tip in the right atrium. Adequate flow was obtained through both lumens of the catheter. The c atheter was fastened to the skin with nonabsorbable suture. Both lumens were flushed with heparinized saline. The patient tolerated the procedure without difficulty and was in stable condition at the conclusion of the procedure. COMPARISON: None. FINDINGS: Fluoroscopic imaging demonstrates tip of the catheter in the right atrium. IMPRESSION: Right internal jugular vein tunneled hemodialysis catheter replacement using fluoroscopic guidance. Dictated by: Taisha George M.D. on 03/09/2017 at 8:36 Approved by: Taisha George M.D. on 03/09/2017 at 8:38
== END 2017-03-08 16:15 | disposition home or self-care (01) | DRG 314 ==
LOC: SED 09:07 → PCC 12:16 → UNDOADMIN 12:16 → PCC 14:41 → CCU 14:47 → PCC 21:39
PROVIDERS: ADMIT Internal Medicine; ATTEND Internal Medicine
PROC: 05HM33Z Insertion of Infusion Device into Right Internal Jugular Vein, Percutaneous Approach (ICD-10-PCS; principal; 2017-03-08)
PROC: B513ZZA Fluoroscopy of Right Jugular Veins, Guidance (ICD-10-PCS; 2017-03-08)
DX: T82.42XA Displacement of vascular dialysis catheter, initial encounter (principal); N18.6 End stage renal disease; I12.0 Hypertensive chronic kidney disease with stage 5 chronic kidney disease or end stage renal disease; I16.0 Hypertensive urgency; E11.9 Type 2 diabetes mellitus without complications; H40.9 Unspecified glaucoma; E03.9 Hypothyroidism, unspecified; G35 Multiple sclerosis; Z86.73 Personal history of transient ischemic attack (TIA), and cerebral infarction without residual deficits; Z79.4 Long term (current) use of insulin; Z87.440 Personal history of urinary (tract) infections; E87.5 Hyperkalemia